=== PATIENT | male | born 1950 ===

== ENCOUNTER 2023-08-04 14:54 | Observation (INO) | payer MEDICARE, SELFPAY ==
--- NOTE | ~2023-08-04 | CT_ITS ---
EXAMINATION: CTA BRAIN/CAROTID DATE: 08/04/2023 19:59 INDICATION: Resting nystagmus. Disequilibrium. TECHNIQUE: Computed tomographic angiography (CTA) of the head and neck was performed with 100 mL Omni paque-350 intravenous contrast. Multiplanar reconstructions and maximum intensity projection 3D-recon structions of the carotid arteries and of the intracranial arteries were created by the technologist on a separate workstation. Precontrast CT of the head was also obtained. Automated exposure control and iterative reconstruction technique were employed.The dose-length product was 1829.12 mGy-cm. COMPARISON: None. FINDINGS: Carotid arteries: Thoracic aorta is normal in caliber with plaque visible atherosclerotic plaque and no dissection. The re is small amount of atherosclerotic plaque with 20% stenosis of the right carotid bulb relative to normal distal artery lumen diameter (NASCET criteria). There is small amount of atherosclerotic plaqu e with 0% stenosis of the left carotid bulb relative to normal distal artery lumen diameter. The left vertebral artery is mildly dominant. Visualized portions of the upper lungs are clear. Superior medi astinum and cervical soft tissues are unremarkable. Moderate cervical spondylosis. Head: No acute intracranial hemorrhage, acute infarction or abnormal extra axial fluid collection. There is mild scattered white matter hypoattenuation consistent with chronic small vessel ischemic disease. V entricles are normal and symmetric. No mass/mass effect. No abnormally enhancing brain lesions identi fied on the post contrast imaging. The orbits and mastoid air cells are normal. Mild mucosal thickeni ng at the right maxillary sinus. Intracranial arteries Small amount of nonhemodynamically significant atherosclerotic plaque at the bilateral carotid siphon s. There is no hemodynamically significant stenosis in the vertebral, basilar and internal carotid ar teries. Left vertebral artery is mildly dominant. There are no aneurysms identified. Both A1 and P1 segments are patent. Cerebral arterial arborization appears symmetric. IMPRESSION: 1. 20% stenosis of the right carotid bulb relative to normal distal artery lumen diameter (NASCET cri teria). 2. 0% stenosis of the left carotid bulb relative to normal distal artery lumen diameter. 3. Mild scattered white matter hypoattenuation consistent with chronic small vessel ischemic disease. No acute intracranial process or abnormally enhancing brain lesions. 4. Unremarkable cerebral CT angiogram with no hemodynamically significant stenosis, thrombosis or ane urysm. Reviewed, dictated and finalized at location A. CTOR OF PROFESSIONAL SERVICES IMPRESSION: 1. 20% stenosis of the right carotid bulb relative to normal distal artery lume n diameter (NASCET criteria). 2. 0% stenosis of the left carotid bulb relative to normal distal artery lumen diameter. 3. Mild scattered white matter hypoattenuation consistent with chronic small ve ssel ischemic disease. No acute intracranial process or abnormally enhancing br ain lesions. 4. Unremarkable cerebral CT angiogram with no hemodynamically significant steno sis, thrombosis or aneurysm.
--- NOTE | ~2023-08-04 | XR_ITS ---
EXAMINATION: XR chest 1V portable DATE: 08/04/2023 19:43 INDICATION: Chest pain TECHNIQUE: frontal view of the chest was obtained. COMPARISON: Chest radiograph dated 09/20/2003 FINDINGS: The lungs are clear with no focal airspace opacities, pulmonary edema, pleural effusion or pneumothor ax. The cardiomediastinal silhouette is normal. Coronary artery stenting. A few tiny surgical clips a t the left neck. IMPRESSION: 1. No acute cardiopulmonary disease. Reviewed, dictated and finalized at location A. BILLING SPECIALIST
--- NOTE | ~2023-08-04 | MR_ITS ---
EXAMINATION: MR brain/brain stem wo/w con DATE: 08/05/2023 08:05 INDICATION: Disequilibrium. TECHNIQUE: Magnetic resonance imaging (MRI) of the brain and brainstem was performed without and with 20 mL MultiHance intravenous contrast. COMPARISON: Head CT 08/04/2023 FINDINGS: There are scattered areas of nonspecific increased T2-weighted signal intensity in the cere bral white matter. There is no intracranial hemorrhage, acute infarction, or abnormal intracranial ma ss lesion. The ventricles are normal in size. The orbits are normal. The paranasal sinuses are clear. There are trace mastoid effusions. There are effusions of the petrous apices bilaterally. IMPRESSION: 1. Mild nonspecific cerebral white matter disease, which likely represents chronic small vessel ische davina disease. Reviewed, dictated and finalized at location A. HOLDER IMPRESSION: 1. Mild nonspecific cerebral white matter disease, which likely represents chronic care nurse nichol small vessel ischemic disease.
[2023-08-04 15:01] VITALS: BP 178/76; PULSE 63; RESP 20; TEMP 35.5; O2SAT 98
--- NOTE | 2023-08-04 18:59 | ECG_ITS ---
Measurements Intervals [place] Rate: 65 P: 20 ID: [id number] QRS: -57 QRSD: 121 T: 30 QT: 364 QTc: 380 Interpretive Statements SINUS RHYTHM LEFT ANTERIOR FASCICULAR BLOCK [QRS AXIS <= -45, QR IN I, RS IN II] NONSPECIFIC ST AND T-WAVE ABNORMALITY ABNORMAL ECG NO PREVIOUS ECG AVAILABLE FOR COMPARISON Electronically Signed On 08-05-2023 11:43:39 BODY ART TECHNICIAN by Joe Ken M.D.
[2023-08-04] MEDS: ONDANSETRON INJ 4 MG/2 ML VIAL IV PUSH (19:24)
[2023-08-04] MEDS: LORazepam INJ (*CRX) 2 MG/ML VIAL 0.5 MG IV PUSH (19:24)
[2023-08-04 19:27] LABS: Basophils Percent Auto 0.2 % (0.2-1.2); Eosinophils Percent Auto 0.2 % (0-4.4); Hematocrit 46.2 % (42.0-52.0); Hemoglobin 14.7 g/dL (14.0-18.0); Immature Granulocyte Absolute 0.06 K/mm3 (0.00-0.031); Immature Granulocyte Percent A 0.5 % (0-0.5); Lymphocytes Absolute Auto 1.19 K/mm3 (0.9-3.2); Lymphocytes Percent Auto 9.2 % (18.3-44.2); Mean Corpuscular HGB Conc 31.8 g/dl (32-36); Mean Corpuscular Hemoglobin 28.7 pg (26-34); Mean Corpuscular Volume 90.1 fl (80-100); Mean Platelet Volume 10.7 fl (7.4-10.4); Monocytes Absolute Auto 0.4 K/mm3 (0.1-0.6); Monocytes Percent Auto 3.3 % (2.6-8.5); Neutrophils Absolute Auto 11.2 K/mm3 (1.3-6.7); Neutrophils Percent Auto 86.6 % (45.5-73.1); Platelet Count Result 184 k/mm3 (150-375); Red Blood Count 5.13 M/mm3 (4.6-6.20); Red Cell Distribution Width 13.7 % (11.5-14.5); White Blood Count 12.9 K/mm3 (4.5-10.0)
[2023-08-04 19:36] LABS: INR 0.9; Prothrombin Time 12.4 Seconds (11.1-14.7)
[2023-08-04 19:37] LABS: Alanine Aminotransferase 34 U/L (6-50); Albumin Level 4.3 g/dL (3.5-5.1); Alkaline Phosphatase 120 U/L (38-126); Anion Gap 7 mmol/L (8-16); Aspartate Amino Transferase 31 U/L (17-59); Bilirubin,Total 0.5 mg/dL (0.2-1.3); Blood Urea Nitrogen 25 mg/dL (9-20); Calcium 9.9 mg/dL (8.4-10.2); Carbon Dioxide 29 mmol/L (22-30); Chloride 104 mmol/L (98-107); Estimated Glomerular Filt Rate 60; Glucose 122 mg/dL (65-110); Lipase 33 U/L (23-300); Magnesium 2.1 mg/dL (1.6-2.3); Potassium 4.4 mmol/L (3.4-5.0); Sodium 140 mmol/L (137-145)
[2023-08-04 19:38] LABS: Partial Thromboplastin Time 30.3 SECONDS (22.3-36.8)
[2023-08-04 19:49] LABS: Troponin I < 0.012 ng/mL (0.000-0.034)
[2023-08-04 20:05] LABS: Influenza A QL RT-PCR Negative (Negative); Influenza B QL RT-PCR Negative (Negative); RSV RNA, RT-PCR Negative (Negative); SARS-CoV-2 RNA PCR Negative (Negative)
--- NOTE | 2023-08-04 20:29 | ED.GENADULT ---
HPI - General Adult General Chief complaint: Chest Pain Stated complaint: cp, n/v, dyspnea Time Seen by Provider: 08/04/23 18:56 History of Present Illness HPI narrative: This is a 73-year-old male presenting to the ED with dizziness. Patient was laying on sofa to he tried to get up he was unable to get his balance. He had some episodes of vomiting. He feels that he cannot focus his vision. The disequilibrium improves when he closes his eyes but returns when he opens them. It is worsened with movement. He denies slurred speech, trouble swallowing or loss of coordination. He denies numbness tingling weakness to any extremity. No fever chills chest pain shortness of breath or abdominal pain. No trauma. Patient states he had similar symptoms 3 weeks ago and went to [place] but was never seen in the symptoms resolved. Related Data Allergies Allergy/AdvReac Type Severity Reaction Status Date / Time tetracycline Allergy Severe Unverified 01/31/15 09:29 [facility] Past Medical History Medical History Diabetes HTN (hypertension) Exam Narrative: APPEARANCE: No apparent distress. Head: atraumatic. EYES: Rightward lateral nystagmus at rest NOSE: Atraumatic NECK: Trachea midline RESPIRATORY: No increased rate of breathing CARDIOVASCULAR: RRR, ABDOMINAL: Non-distended MUSCULOSKELETAl: No obvious deformities NEURO: Alert. Cranial nerves 2-12 grossly intact. Sensation light touch, motor function cerebellar function intact for 4 extremities. Gait exam deferred SKIN:: Warm, dry. Normal color PSYCHIATRIC: Normal affect NIH is 0-NIH scale is insensitive for posterior stroke Course Vital Signs Vital signs: Vital Signs Temperature 95.9 F L 08/04/23 15:01 Pulse Rate 63 08/04/23 15:01 Respiratory Rate 20 08/04/23 15:01 Blood Pressure 178/76 H 08/04/23 15:01 Pulse Oximetry 98 08/04/23 15:01 Temperature 95.9 F L 08/04/23 15:01 Pulse Rate 63 08/04/23 15:01 Respiratory Rate 20 08/04/23 15:01 Blood Pressure 178/76 H 08/04/23 15:01 Pulse Oximetry 98 08/04/23 15:01 Medical Decision Making [facility] Narrative Medical decision making narrative: -Course: 73-year-old male with last known normal 2:00 p.m. presenting with disequilibrium/lateral nystagmus at rest no other neurologic deficits. Patient is elderly, with risk factors for vascular disease and elevated blood pressure. This is concerning for central cause of disequilibrium. NIH is 0. NIH insensitive for posterior stroke. patient is outside of any treatment window. CTA showed small-vessel ischemic disease but no large vessel occlusions or infarct. Patient was given meclizine with no improvement. Patient will be admitted the hospital for further evaluation. 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 Metabolic panel unremarkable. Initial troponin undetectable. Viral swabs negative. CT head and CT of the head showed no intracranial hemorrhage. 20% stenosis of the carotid bulb. Small vessel ischemic disease. Chest x-ray unremarkable Independent EKG interpretation: Rhythm [sinus], Rate 65, [place] -[normal], VT -[normal], QRS [narrow], QTC [normal], T waves -[negative for concerning inversions], ST Segments - [Negative for concerning elevations] Final interpretations: NSR with nonspecific ST changes -Discussion of Management/Consultants: Rod-Hospitalist -Interventions: 325 aspirin, meclizine -Shared decision making / Disposition: Admitted Vital Signs Vital Signs: Vital Signs Temperature 95.9 F L 08/04/23 15:01 Pulse Rate 63 08/04/23 15:01 Respiratory Rate 20 08/04/23 15:01 Blood Pressure 178/76 H 08/04/23 15:01 Pu
[2023-08-04] MEDS: ASPIRIN 81 MG CHEWABLE TABLET 324 MG PO (21:09)
[2023-08-04] MEDS: MECLIZINE HCL 25 MG TABLET PO (21:34)
--- NOTE | 2023-08-04 21:48 | PM.IMHP ---
H&P: HPI History of Present Illness Date/Time: 08/04/23 21:48 Chief Complaint: Dizziness Narrative: This is a 73-year-old male presenting to the ED with dizziness.? He stated he was lying in sofa at about 2:00 p.m. and try to get up, felt dizzy which he described as intermittent spinning and he is eyes moving fast, and also unstable balance,? He had some episodes of vomiting at the same time,.? He feels that he cannot focus his vision.? The disequilibrium improves when he closes his eyes and lies down without moving but returns when he opens them and moves.? He denies slurred speech, trouble swallowing or loss of coordination.? He denies numbness tingling weakness to any extremity.? No fever chills chest pain shortness of breath or abdominal pain.? No trauma. He reported that he had similar symptoms 2 weeks ago and he was at [facility] but symptom resolved and he left without being seen. He was evaluated in the ER today, CT scan of the head was negative for any acute finding, CTA head and neck showed variable levels of numbering in great vessels. He was provided with aspirin, Zofran and Antivert. He stated that symptoms has improved a little. He feels much better when he lays down and closes his eye. I was called to admit this patient for further evaluation with an MRI Review of Systems Review of Systems: All systems reviewed & are unremarkable except as noted in HPI and below PMFSH Past Medical History Medical History Diabetes HTN (hypertension) Family History Family History (Updated 08/04/23 @ 23:39 by Mayela Soto RN) Father Coronary artery disease Hx of heart artery stent Heart failure Social History Social History Smoking status: Former smoker Alcohol intake: never Substance use: never Do You Feel Safe in your Home?: Yes Lack of Transportation: No Lack of Food: Never True Current Housing: I Have Housing Concerned About Future Housing: No Difficulty Paying Gas/Electric Bills: No Difficulty Paying for Meds: No Currently Unemployed: No Education: Don't Know Difficulty w/ Childcare or Family Care: No Spiritual care concerns: No Meds Home Medications and Allergies Home Medications Medication Instructions Recorded Confirmed Type aspirin 81 mg tablet 81 mg PO DAILY 08/04/23 08/04/23 History atorvastatin 20 mg tablet 20 mg PO QAM 08/04/23 08/04/23 History carvedilol 6.25 mg tablet 6.25 mg PO BID 08/04/23 08/04/23 History clopidogrel 75 mg tablet 75 mg PO QAM 08/04/23 08/04/23 History digoxin 125 mcg (0.125 mg) tablet 125 mcg PO DAILY 08/04/23 08/04/23 History ergocalciferol (vitamin D2) 1,000 2,400 unit PO DAILY 08/04/23 08/04/23 History unit capsule finasteride 5 mg tablet 5 mg PO DAILY 08/04/23 08/04/23 History furosemide 20 mg tablet 20 mg PO DAILY 08/04/23 08/04/23 History ibrutinib 140 mg capsule 140 mg PO DAILY 08/04/23 08/04/23 History (Imbruvica) isosorbide mononitrate 30 mg 15 mg PO DAILY 08/04/23 08/04/23 History tablet,extended release 24 hr lisinopril 5 mg tablet 5 mg PO DAILY 08/04/23 08/04/23 History loperamide 2 mg tablet 2 mg PO Q4H PRN Diarrhea 08/04/23 08/04/23 History (Anti-Diarrheal (loperamide)) lorazepam 1 mg tablet 1 mg PO DAILY PRN Anxiety 08/04/23 08/04/23 History nitroglycerin 0.4 mg sublingual 0.4 mg sublingual Q5-15M PRN Chest 08/04/23 08/04/23 History tablet Pain pantoprazole 40 mg tablet,delayed 40 mg PO HS 08/04/23 08/04/23 History release tamsulosin 0.4 mg capsule 0.4 mg PO DAILY 08/04/23 08/04/23 History Allergies Allergy/AdvReac Type Severity Reaction Status Date / Time tetracycline Allergy Severe Anaphylaxis Verified 08/04/23 23:56 Vital Signs Vital Signs - 24 hr 08/04/23 15:01 Temperature 95.9 F L Pulse Rate 63 Respiratory Rate 20 Blood Pressure 178/76 H Pulse Oximetry 98 Exam Narrative: APPEARANCE: No apparent distress. Head: atrau
[2023-08-04 21:58] VITALS: BP 170/77; PULSE 69; PULSE 73; RESP 12; O2SAT 96
[2023-08-04 21:58] LABS: Appearance Urine Clear (Clear); Bacteria Urine None Seen /hpf; Bilirubin Urine Negative (Negative); Blood Urine 2+ (Negative); Color Urine Yellow (Yellow); Glucose Urine UA Negative (Negative); Ketones Urine Negative (Negative); Leukocyte Esterase Ur Negative LEU/UL (Negative); Nitrate Urine Negative (Negative); Non Pathogenic Casts 0-2; Protein Urine Negative (Negative); Squamous Epithelial Cell Urine None seen /hpf (Few); Urobilinogen Urine 0.2 mg/dL (<2.0); WBC Urine 0-5 /hpf; pH Urine 5.5 (5.0-9.0)
[2023-08-04 21:59] LABS: Specific Grav Ur 1.045 (1.001-1.035)
[2023-08-04 22:00] LABS: Add Urine Microscopic? YES
--- NOTE | 2023-08-04 22:17 | ECG_ITS ---
Measurements Intervals [place] Rate: 71 P: 52 WI: 195 QRS: -59 QRSD: 124 T: 30 QT: 371 QTc: 406 Interpretive Statements SINUS RHYTHM LEFT ANTERIOR FASCICULAR BLOCK [QRS AXIS <= -45, QR IN I, RS IN II] ABNORMAL ECG COMPARED TO ECG 08/04/2023 19:26:24 NO SIGNIFICANT CHANGES Electronically Signed On 08-07-2023 14:58:40 PLAN COORDINATOR by Joe Ken M.D.
[2023-08-04 22:42] LABS: Troponin I < 0.012 ng/mL (0.000-0.034)
--- NOTE | 2023-08-04 23:36 | ADMGEN ---
This patient, Solo Martin, was admitted to [facility] Surg Room 323-02. Patient/family oriented to hospital policies and general routines including ID bracelet, bed and alarms, visiting hours, pain management, procedures, bathroom and other care routines, personal items, smoking policy, room service/diet, and visiting hours. Information on how to activate the Rapid Response Team has been discussed. Patient/Family are encouraged to report perceived risks to care and to ask questions if they do not understand what they are told or what they should do.
[2023-08-04 23:38] VITALS: BP 166/76; PULSE 68; RESP 13; TEMP 36.1; O2SAT 99
[2023-08-04 23:39] VITALS: BMI 30.7
[2023-08-05] VITALS: PULSE 75
[2023-08-05 04:00] VITALS: BP 150/65; PULSE 70; PULSE 74; RESP 12; TEMP 36.1; O2SAT 97
[2023-08-05 05:44] VITALS: BP 150/65; PULSE 74; RESP 12; TEMP 36.1; O2SAT 97
[2023-08-05 06:33] LABS: Basophils Percent Auto 0.3 % (0.2-1.2); Eosinophils Absolute Auto 0.1 K/mm3 (0-0.3); Eosinophils Percent Auto 0.5 % (0-4.4); Hematocrit 42.2 % (42.0-52.0); Hemoglobin 13.7 g/dL (14.0-18.0); Immature Granulocyte Absolute 0.04 K/mm3 (0.00-0.031); Immature Granulocyte Percent A 0.4 % (0-0.5); Lymphocytes Absolute Auto 1.37 K/mm3 (0.9-3.2); Lymphocytes Percent Auto 13.5 % (18.3-44.2); Mean Corpuscular HGB Conc 32.5 g/dl (32-36); Mean Corpuscular Hemoglobin 28.8 pg (26-34); Mean Corpuscular Volume 88.8 fl (80-100); Mean Platelet Volume 10.7 fl (7.4-10.4); Monocytes Absolute Auto 0.6 K/mm3 (0.1-0.6); Monocytes Percent Auto 5.9 % (2.6-8.5); Neutrophils Absolute Auto 8.1 K/mm3 (1.3-6.7); Neutrophils Percent Auto 79.4 % (45.5-73.1); Platelet Count Result 186 k/mm3 (150-375); Red Blood Count 4.75 M/mm3 (4.6-6.20); Red Cell Distribution Width 13.8 % (11.5-14.5); White Blood Count 10.2 K/mm3 (4.5-10.0)
[2023-08-05 06:41] LABS: Anion Gap 4 mmol/L (8-16); Blood Urea Nitrogen 23 mg/dL (9-20); Calcium 9.3 mg/dL (8.4-10.2); Carbon Dioxide 26 mmol/L (22-30); Chloride 107 mmol/L (98-107); Estimated CRCL calculation 65 ml/min; Estimated Glomerular Filt Rate > 60; Glucose 107 mg/dL (65-110); Sodium 137 mmol/L (137-145)
[2023-08-05] MEDS: LORazepam INJ (*CRX) 2 MG/ML VIAL 0.5 MG IV PUSH (07:24)
[2023-08-05 08:00] VITALS: BP 146/96; PULSE 81; RESP 18; TEMP 36; O2SAT 98
[2023-08-05] MEDS: TAMSULOSIN HCL 0.4 MG CAPSULE PO (09:02)
[2023-08-05] MEDS: FUROSEMIDE 20 MG TABLET PO (09:02)
[2023-08-05] MEDS: ATORVASTATIN 20 MG TABLET PO (09:02)
[2023-08-05] MEDS: lisinopriL 5 MG TABLET PO (09:02)
[2023-08-05] MEDS: FINASTERIDE 5 MG TABLET PO (09:02)
[2023-08-05 09:03] VITALS: PULSE 80
[2023-08-05] MEDS: CLOPIDOGREL BISULFATE 75 MG TABLET PO (09:03)
[2023-08-05] MEDS: carvediloL 6.25 MG TABLET PO (09:03)
[2023-08-05] MEDS: DIGOXIN TAB 125 MCG TABLET PO (09:03)
[2023-08-05] MEDS: ASPIRIN 81 MG ENTERIC TABLET PO (09:04)
[2023-08-05] MEDS: ISOSORBIDE MONONITRATE 15 MG TAB.ER.24H PO (11:52)
--- NOTE | 2023-08-05 11:52 | WPDNEURCNPN ---
Assessment and Plan Assessment and plan (1) Unsteady gait: Code(s): R26.81 - Unsteadiness on feet Status: Acute (2) Diabetes: Code(s): E11.9 - Type 2 diabetes mellitus without complications Status: Acute (3) HTN (hypertension): Code(s): I10 - Essential (primary) hypertension Status: Acute Plan Dizziness with underlying diabetes mellitus could very well be secondary to diabetic autonomic neuropathy but he also had the additional complaint of vomiting and inability to focus with information that disequilibrium improved when he closed his eyes raising the possibility of vestibular dysfunction though at present his exam is normal possibility of the stroke has been ruled out so as the posterior circulation disease he can obtain the surface echocardiogram and then he can be released on the same medications that is aspirin and clopidogrel only for the next 6 weeks. Consult date: 08/05/23 HPI: Solo Martin is a 73 year old male Admitted to the hospital through the emergency room for the complaints of dizziness. He was laying on sofa and when he tried to get up he was unable to get his balance. Also had an episode of vomiting in addition to difficulties in focusing his vision he also reported that disequilibrium improve when he closed his eyes but returned when he opened his eyes and also it is worsened with movements. He had no associated dysarthria difficulties in swallowing difficulties incoordination he gave no history of numbness or tingling or weakness of 1 or other upper or lower extremity. He is allergic to tetracycline. Has ongoing history of diabetes mellitus and hypertension. Initial exam was nonfocal. Vital signs were normal except the blood pressure 178/76. Routine lab studies including CBC BMP were all normal and he was also negative for the screening for influenza a influenza B RSV and SARs COVID. He has CTA of the brain and neck which revealed 20% stenosis of right carotid bulb but otherwise normal. Since admission MRI of the brain has been done which is mild and nonspecific white matter changes but no territorial infarct or space-occupying lesion. His chest x-ray is negative. He is a former smoker, never alcohol intake, and has been taking multiple medications which include aspirin 81mg daily atorvastatin 20mg daily carvedilol 6.25mg b.i.d. clopidogrel 75mg daily digoxin 125mcg daily in addition to furosemide, lisinopril tamsulosin and p.r.n. lorazepam Review of Systems Review of Systems: All systems reviewed & are unremarkable except as noted in HPI and below PMFSH Past Medical History Medical History Diabetes HTN (hypertension) Family History Family History (Updated 08/04/23 @ 23:39 by Mayela Soto, RADHA) Father Coronary artery disease Hx of heart artery stent Heart failure Social History Social History Smoking status: Former smoker Alcohol intake: never Substance use: never Do You Feel Safe in your Home?: Yes Lack of Transportation: No Lack of Food: Never True Current Housing: I Have Housing Concerned About Future Housing: No Difficulty Paying Gas/Electric Bills: No Difficulty Paying for Meds: No Currently Unemployed: No Education: Don't Know Difficulty w/ Childcare or Family Care: No Spiritual care concerns: No Meds Home Medications and Allergies Home Medications Medication Instructions Recorded Confirmed Type aspirin 81 mg tablet 81 mg PO DAILY 08/04/23 08/04/23 History atorvastatin 20 mg tablet 20 mg PO QAM 08/04/23 08/04/23 History carvedilol 6.25 mg tablet 6.25 mg PO BID 08/04/23 08/04/23 History clopidogrel 75 mg tablet 75 mg PO QAM 08/04/23 08/04/23 History digoxin 125 mcg (0.125 mg) tablet 125 mcg PO DAILY 08/04/23 08/04/23 History ergocalciferol (vitamin D2) 1,000 2,400 unit PO DAILY 08/04/23 08/04/23 History unit capsule finasteride 5 mg tablet 5 mg PO SANJEEV
[2023-08-05 14:00] VITALS: BP 146/64; PULSE 75; RESP 16; TEMP 36.2; O2SAT 96
--- NOTE | 2023-08-05 15:55 | PHAR ---
PHARMACY VERIFIED HOME MED: Ibrutinib [Imbruvica] 140 mg capsule Take one capsule by mouth once daily with a full glass of water Nursing: handle with caution - wear gloves
--- NOTE | 2023-08-05 16:32 | PM.DS ---
DS: Admitting Diagnosis Discharge Date 08/05/23 Admitting Diagnosis Unstable gait DS: Discharge Diagnosis Discharge Diagnosis (1) Dizziness: Code(s): R42 - Dizziness and giddiness Status: Acute (2) Unsteady gait: Code(s): R26.81 - Unsteadiness on feet Status: Acute Plan Admit for further evaluation, consult Neurology, MRI of the brain in the morning DS: Summary Hospital Course Reason for hospitalization: Unstable gait Dizziness Hospital Course: Chief Complaint: Dizziness Narrative: This is a 73-year-old male presenting to the ED with dizziness.? He stated he was lying in sofa at about 2:00 p.m. and try to get up, felt dizzy which he described as intermittent spinning and he is eyes moving fast, and also unstable balance,? He had some episodes of vomiting at the same time,.? He feels that he cannot focus his vision.? The disequilibrium improves when he closes his eyes and lies down without moving but returns when he opens them and moves.? He denies slurred speech, trouble swallowing or loss of coordination.? He denies numbness tingling weakness to any extremity.? No fever chills chest pain shortness of breath or abdominal pain.? No trauma.? He reported that he had similar symptoms 2 weeks ago and he was at [facility] but symptom resolved and he left without being seen.? He was evaluated in the ER today, CT scan of the head was negative for any acute finding, CTA head and neck showed variable levels of numbering in great vessels.? He was provided with aspirin, Zofran and Antivert.? He stated that symptoms has improved a little.? He feels much better when he lays down and closes his eye.? I was called to admit this patient for further evaluation with an MRI Significant findings: 1. Mild nonspecific cerebral white matter disease, which likely represents chronic small vessel ischemic disease. Procedures performed: None consultants: Neurology: Dizziness with underlying diabetes mellitus could very well be secondary to diabetic autonomic neuropathy but he also had the additional complaint of vomiting and inability to focus with information that disequilibrium improved when he closed his eyes raising the possibility of vestibular dysfunction though at present his exam is normal possibility of the stroke has been ruled out so as the posterior circulation disease he can obtain the surface echocardiogram and then he can be released on the same medications that is aspirin and clopidogrel only for the next 6 weeks. Time Spent with Patient Time attestation: Total time spent providing and/or coordinating discharge services: Time spent: Greater than 30 minutes Exam Narrative: APPEARANCE: No apparent distress. Head: atraumatic. EYES:? Pupils are equal round reactive to light, EOMI, no nystagmus NOSE: Atraumatic NECK: Trachea midline RESPIRATORY: No increased rate of breathing CARDIOVASCULAR: RRR, ABDOMINAL: Non-distended MUSCULOSKELETAl: No obvious deformities NEURO: Alert.? Cranial nerves 2-12 grossly intact.? Sensation light touch, motor function cerebellar function intact for 4 extremities.? Gait Stable and improved SKIN:: Warm, dry. Normal color PSYCHIATRIC: Normal affect NIH is 0-however patient does have dizziness with head ? DS: Data Data Completed and Pending Labs on day of discharge: Labs from last 24 hours 08/05/23 08/04/23 08/04/23 06:05 22:15 21:40 WBC 10.2 H RBC 4.75 Hgb 13.7 L Hct 42.2 MCV 88.8 MCH 28.8 MCHC 32.5 RDW 13.8 Plt Count 186 MPV 10.7 H Immature Gran % (Auto) 0.4 Neut % (Auto) 79.4 H Lymph % (Auto) 13.5 L Nuckolls % (Auto) 5.9 Eos % (Auto) 0.5 Baso % (Auto) 0.3 Lymph # (Auto) 1.37 [place]olls # (Auto) 0.6 Eos # (Auto) 0.1 Baso # (Auto) 0.0 Abs Immat Gran (auto) 0.04 H Absolute Neuts (auto) 8.1 H Absolute Nucleated RBC 0.0 Nucleated RBC % 0.0 PT INR APTT Sodium 137 Potassium 4.0 Chlorid
--- NOTE | 2023-08-05 22:17 | ECG_ITS ---
Measurements Intervals [place] Rate: 70 P: -5 [place]: 189 QRS: -50 QRSD: 125 T: 51 QT: 381 QTc: 413 Interpretive Statements SINUS RHYTHM LEFT ANTERIOR FASCICULAR BLOCK [QRS AXIS <= -45, QR IN I, RS IN II] NONSPECIFIC ST & T-WAVE ABNORMALITY COMPARED TO ECG 08/04/2023 22:17:51 NO SIGNIFICANT CHANGES Electronically Signed On 08-05-2023 14:41:30 NYLON MENDER by Edouard Moy M.D.
== END 2023-08-05 17:52 | disposition home or self-care (01) ==
LOC: ANHED 21:47 → ANH3MEDSUR 23:04
PROVIDERS: Admitting Provider Student in an Organized Health Care Education/Training Program; Emergency Provider Emergency Medicine; PCP Internal Medicine; Visit Provider Internal Medicine
DX: R42 Dizziness and giddiness (principal); R26.81 Unsteadiness on feet; I10 Essential (primary) hypertension; E11.9 Type 2 diabetes mellitus without complications; Z79.82 Long term (current) use of aspirin; Z79.02 Long term (current) use of antithrombotics/antiplatelets
CPT/HCPCS: 36415; 70496; 70498; 70553; 71045; 80048; 80053; 81001; 83690; 83735; 84484; 85025; 85610; 85730; 87637; 93005; 96374; 96375; 96376; 97161; 97165; 99285; A9270; A9577; G0378; J2060; J2405; Q9967

== ENCOUNTER 2024-08-20 11:54 | Emergency (ER) | payer MEDICARE, SELFPAY ==
[2024-08-20 11:57] VITALS: BP 163/85; PULSE 69; RESP 16; TEMP 36.8; O2SAT 96
--- NOTE | 2024-08-20 12:01 | PC.NURSE ---
LWBS:pt reports he wants to go because his BP is better and not symptomatic and has appointment with vascular on Thursday. Reports he will return if s/s change
== END 2024-08-20 13:34 | disposition left against medical advice (07) ==
LOC: ANHED 12:22
PROVIDERS: PCP Internal Medicine
DX: I10 Essential (primary) hypertension (principal)
CPT/HCPCS: 99199

== ENCOUNTER 2025-05-31 09:13 | Outpatient (CLI) | payer MEDICARE, SELFPAY ==
--- NOTE | ~2025-05-31 | US_ITS ---
EXAMINATION: US renal BI DATE: 05/31/2025 09:32 INDICATION: Stage III chronic kidney disease TECHNIQUE: Multiple ultrasound grayscale images of the kidneys were obtained. COMPARISON: CT dated FINDINGS: The right kidney measures 10.3 x 5.2 x 4.8 cm. The left kidney measures 10.6 x 6.1 x 5.6 cm. The kidneys demonstrate normal echogenicity. There is no hydronephrosis in either kidney. No stones identified. The bladder is normal. IMPRESSION: 1. Normal kidneys without hydronephrosis. Reviewed, dictated and finalized at location A. PUMPING STATION HELPER
== END 2025-05-31 09:14 | disposition home or self-care (01) ==
LOC: MICIMG 09:15
PROVIDERS: PCP Internal Medicine; Visit Provider Specialist
DX: N18.30 Chronic kidney disease, stage 3 unspecified (principal)
CPT/HCPCS: 76770

== ENCOUNTER 2025-06-21 18:36 | Emergency (ER) | payer MEDICARE, SELFPAY ==
--- OUTSIDE RECORDS SUMMARY | 2025-04-12 09:45 | XMS_ITS ---
Author Organization [facility] Address [address] [place] [address] Care Team Providers Care Last Picker Name Role Phone Gregg Farzad Unavailable [phone] Encounters Encounter Location Date Provider Diagnosis [place] [facility] [address] [facility] [address] [place] [address] 04/12/2025 Farzad Escobedo Plan Of Treatment Next Appt Details Provider Name:Farzad Escobedo , 09/01/2025 01:15:00 PM, [address], [place], [address], Progress Notes * Chary MARTINOB:1950 ( 75 yo M)Acc No.[id number]:04/12/2025 Progress Notes Patient: Solo JAMES Provider: Naomi SANDERS MD, Rocky.Flip.C.P, F.A.S.N. :1950 A ge:75 Y S ex:Male Date:04/12/2025 Address:[address] [place] [address] Subjective: * Chief Complaints: * * Medical History: Objective: * Vitals: Assessment: Plan: * Treatment: * Billing Information: * Visit Code: * Procedure Codes: * Electronic signature of Kelly Escobedo MD on 06/21/2025 at 07:50 PM INFANT AND TODDLER TEACHER Sign off status: Pending * Provider: Naomi SANDERS MD, Rocky.Flip.C.P, F.A.S.N. Date: Generated for Printing/Faxing/eTransmitting on: 07:50 PM INFANT AND TODDLER TEACHER
--- OUTSIDE RECORDS SUMMARY | 2025-04-26 12:30 | XMS_ITS ---
Author Organization [facility] Office Address [address] [place] [address] Care Team Providers Care Psychiatric Orderly Name Role Phone Gregg Farzad Unavailable [phone] Encounters Encounter Location Date Provider Diagnosis [place] [facility] [address] [facility] [address] [place] [address] 04/26/2025 Farzad Escobedo Plan Of Treatment Next Appt Details Provider Name:Farzad Escobedo , 09/01/2025 01:15:00 PM, [address], [place], [address], Progress Notes * Chary MARTINOB:1950 ( 75 yo M)Acc No.[id number]:04/26/2025 Progress Notes Patient: Solo JAMES Provider: Naomi SANDERS MD, Rocky.Flip.C.P, F.A.S.N. :1950 A ge:75 Y S ex:Male Date:04/26/2025 Address:[address] [place] [address] Subjective: * Chief Complaints: * * Medical History: Objective: * Vitals: Assessment: Plan: * Treatment: * Billing Information: * Visit Code: * Procedure Codes: * Electronic signature of Kelly Escobedo MD on 06/21/2025 at 07:50 PM CONSTRUCTION FRAMER Sign off status: Pending * Provider: Naomi SANDERS MD, Rocky.Flip.C.P, F.A.S.N. Date: 06/26/2024 Generated for Printing/Faxing/eTransmitting on: 07:50 PM CONSTRUCTION FRAMER
--- OUTSIDE RECORDS SUMMARY | 2025-06-09 07:30 | XMS_ITS ---
Author Organization [facility] Address [address] [facility] [address] [facility] [address] [place] [address] Care Team Providers Care Offbearer Sewer Pipe Name Role Phone EscobedoZacharyFarzad Unavailable [phone] Problems Problem Type SNOMED Code ICD Code Onset Dates Problem Status W/U Status Risk Notes Problem Chronic kidney disease stage 3A (disorder) (243005290) Chronic kidney disease, stage 3a (N18.31) Active confirmed Problem Coronary artery disease (09362801) CAD (coronary artery disease) (I25.10) Active confirmed Encounters Encounter Location Date Provider Diagnosis [place] [facility] [address] [facility] [address] [place] [address] 06/09/2025 Farzad Escobedo Chronic kidney disease, stage 3a N18.31 ; Benign prostatic hyperplasia without lower urinary tract symptoms N40.0 ; Other fatigue R53.83 ; Gastro-esophageal reflux disease without esophagitis K21.9 ; Edema, unspecified R60.9 ; Metabolic disorder, unspecified E88.9 and CAD (coronary artery disease) I25.10 Assessments Encounter Date Diagnosis (ICD Code) Assessment Notes Treatment Notes Treatment Clinical Notes Section Notes 06/09/2025 Chronic kidney disease, stage 3a (ICD-10 - N18.31) 06/09/2025 Benign prostatic hyperplasia without lower urinary tract symptoms (ICD-10 - N40.0) 06/09/2025 Other fatigue (ICD-10 - R53.83) 06/09/2025 Gastro-esophagea l reflux disease without esophagitis (ICD-10 - K21.9) 06/09/2025 Edema, unspecified (ICD-10 - R60.9) 06/09/2025 Metabolic disorder, unspecified (ICD-10 - E88.9) 06/09/2025 CAD (coronary artery disease) (ICD-10 - I25.10) Plan Of Treatment Next Appt Details Provider Name:Farzad Escobedo , 09/01/2025 01:15:00 PM, [address], [place], [address], Progress Notes * Chary MARTINOB:1950 ( 75 yo M)Acc No.[id number]:06/09/2025 Progress Notes Patient: Solo JAMES Provider: Naomi SANDERS MD, F.A.C.P, F.A.S.N. :1950 A ge:75 Y S ex:Male Date:06/09/2025 Address:[address] [place] [address] Subjective: * Chief Complaints: Objective: Assessment: * Assessment: 1. C hronic kidney disease, stage 3a - N18.31 (Primary) 2 . B enign prostatic hyperplasia without lower urinary tract symptoms - N40.0 3 . O ther fatigue - R53.83 4 . G rai-esophageal reflux disease without esophagitis - K21.9 & #160; 5 . E viktoria, unspecified - R60.9 6 . M etabolic disorder, unspecified - E88.9 7 . C AD (coronary artery disease) - I25.10 Plan: * Billing Information: * Visit Code: 84016 Office Visit, Est Pt., Level 4. * Procedure Codes: * Electronic signature of Kelly Escobedo MD on 06/21/2025 at 07:50 PM GARMENT MENDER Sign off status: Pending * Provider: Naomi SANDERS MD, F.A.C.P, F.A.S.N. Date: 08/10/2024 Generated for Printing/Faxing/eTransmitting on: 07:50 PM GARMENT MENDER
--- NOTE | ~2025-06-21 | XR_ITS ---
EXAMINATION: XR chest 2V DATE: 06/21/2025 19:00 INDICATION: Chest pain TECHNIQUE: PA and lateral views of the chest were obtained. COMPARISON: Chest radiograph dated 08/04/2023 FINDINGS: The lungs remain clear with no focal airspace opacities, pulmonary edema, pleural effusion or pneumothorax. The cardiomediastinal silhouette is normal. Cholecystectomy clips at the right upper quadrant. IMPRESSION: 1. No acute cardiopulmonary disease. Reviewed, dictated and finalized at location A. TICS ENGINEER
--- NOTE | ~2025-06-21 | CT_ITS ---
EXAMINATION: CTA chest PE protocol DATE: 06/21/2025 19:43 INDICATION: Chest pain TECHNIQUE: Computed tomography (CT) pulmonary angiogram of the chest was performed with 100 mL Omnipaque-350 intravenous contrast. Additional 3D reconstructions utilizing coronal maximum intensity projection (MIP) were performed. Automated exposure control and iterative reconstruction technique were employed. The dose-length product was 581.94 mGy-cm. COMPARISON: None FINDINGS: No pulmonary embolism. Mild elevation the left hemidiaphragm. Region of groundglass opacity at the posterior segment of the right upper lobe with more focal region of groundglass opacity measuring 1.7 cm the left upper lobe and 7 mm in the superior segment of the right lower lobe which are most likely infectious/inflammatory in etiology. No pulmonary edema, pleural effusion or pneumothorax. Heart size is normal. Atherosclerotic coronary artery calcification likely coronary artery stenting along the left anterior coronary artery. No pericardial effusion. Thoracic aorta is normal in caliber with no di ssection. No pathologically enlarged thoracic lymphadenopathy. Cholecystectomy clips at the gallbladder fossa. Visualized upper abdomen is otherwise unremarkable. Mild thoracic spondylosis with bridging osteophytes at multiple levels consistent with diffuse idiopathic skeletal hyperostosis (DISH). IMPRESSION: 1. No pulmonary embolism. 2. Regions of groundglass opacity in the bilateral upper lobes and superior segment right lower lobe which are likely infectious/inflammatory in etiology. Consider 3 month follow-up low-dose chest CT. Reviewed, dictated and finalized at location A. RVISOR SOLDER MAKING IMPRESSION: 1. No pulmonary embolism. 2. Regions of groundglass opacity in the bilateral upper lobes and superior seg ment right lower lobe which are likely infectious/inflammatory in etiology. Con street light lamp cleaner 3 month follow-up low-dose chest CT.
--- NOTE | 2025-06-21 18:38 | ECG_ITS ---
Test Date: 2025-06-21 19:17:55 Measurements Intervals [place] Rate: 80 P: 48 [place]: 200 QRS: -60 QRSD: 129 T: 55 QT: 320 QTc: 369 Interpretive Statements SINUS RHYTHM BORDERLINE AV CONDUCTION DELAY LEFT ANTERIOR FASCICULAR BLOCK ABNORMAL ECG No previous ECG available for comparison Electronically Signed On 06-21-2025 21:09:31 SPA TECHNICIAN by Harris Rea D.O.
[2025-06-21 18:48] VITALS: BP 112/64; PULSE 89; RESP 20; TEMP 36.6; O2SAT 98
[2025-06-21 19:08] LABS: Hematocrit 44.4 % (42.0-52.0); Hemoglobin 14.4 g/dL (14.0-18.0); Immature Granulocyte Percent A 0.5 % (0-0.5); Lymphocytes Absolute Auto 1.96 K/mm3 (0.9-3.2); Mean Corpuscular HGB Conc 32.4 g/dl (32-36); Mean Corpuscular Hemoglobin 28.9 pg (26-34); Mean Corpuscular Volume 89.2 fl (80-100); Nucleated Red Blood Cells Absolute Auto 0.000 K/mm3 (0.0-0.012); Nucleated Red Blood Cells Perc 0.0 % (0.0-0.2); Platelet Count Result 188 k/mm3 (150-375); Red Blood Count 4.98 M/mm3 (4.6-6.20); White Blood Count 10.4 K/mm3 (4.5-10.0)
--- NOTE | 2025-06-21 19:12 | ECG_ITS ---
Test Date: 2025-06-21 18:42:24 Measurements Intervals [place] Rate: 83 P: 54 NE: 182 QRS: -66 QRSD: 130 T: 70 QT: 324 QTc: 382 Interpretive Statements SINUS RHYTHM LEFT ANTERIOR FASCICULAR BLOCK [QRS AXIS <= -45, QR IN I, RS IN II] Poor R wave progression No previous ECG available for comparison Electronically Signed On 06-22-2025 17:17:36 AUTO BODY REPAIR TECHNICIAN by Brittny Acevedo M.D.
[2025-06-21 19:15] LABS: Alanine Aminotransferase 27 U/L (6-50); Albumin Level 4.1 g/dL (3.5-5.1); Alkaline Phosphatase 98 U/L (38-126); Anion Gap 9 mmol/L (4-12); Aspartate Amino Transferase 27 U/L (17-59); Bilirubin,Total 0.4 mg/dL (0.2-1.3); Blood Urea Nitrogen 48 mg/dL (9-20); Calcium 9.7 mg/dL (8.4-10.2); Carbon Dioxide 20 mmol/L (22-30); Chloride 106 mmol/L (98-107); Estimated CRCL calculation 35 ml/min; Estimated Glomerular Filt Rate 33; Glucose 112 mg/dL (65-110); Lipase 67 U/L (23-300); Potassium 5.0 mmol/L (3.4-5.0); Sodium 135 mmol/L (137-145); Total Protein 7.1 g/dL (6.3-8.2)
--- NOTE | 2025-06-21 19:18 | ED.CHESTPAIN ---
HPI - Chest Pain General Chief Complaint: Chest Pain Stated Complaint: CP Time Seen by Provider: 06/21/25 19:02 History of Present Illness HPI narrative: 75-year-old male with history of coronary artery disease with stent, CHF on digoxin, hypertension, hyperlipidemia, non-Hodgkin's lymphoma and prostate cancer on oral chemotherapy. Patient presents to the emergency department today with chest pressure sensations. He states that been going on for years and has a very poor historian. States his chest pain is in his chest feels like a pressure sensation going down his left arm and left rib cage. Alleviated by belching and sitting up but worse when he lies flat. Denies any shortness of breath or any nausea, vomiting, diaphoresis. 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 Family at bedside also poor historians not able to provide additional collateral formation. Related Data Home Medications ?Medication ?Instructions ?Recorded ?Confirmed ?Last Taken ?Type aspirin 81 mg tablet 81 mg PO DAILY 08/04/23 06/21/25 06/21/25 05:29 History atorvastatin 20 mg tablet 20 mg PO QAM 08/04/23 06/21/25 06/20/25 18:00 History carvedilol 6.25 mg tablet 6.25 mg PO BID 08/04/23 06/21/25 06/21/25 05:30 History clopidogrel 75 mg tablet 75 mg PO QAM 08/04/23 06/21/25 06/21/25 05:30 History digoxin 125 mcg (0.125 mg) tablet 125 mcg PO DAILY 08/04/23 06/21/25 06/21/25 12:00 History ergocalciferol (vitamin D2) 1,000 2,400 unit PO DAILY 08/04/23 08/04/23 Unknown History unit capsule finasteride 5 mg tablet 5 mg PO DAILY 08/04/23 06/21/25 06/21/25 17:00 History furosemide 20 mg tablet 20 mg PO PRN ankle swelling 08/04/23 06/21/25 Unknown History ibrutinib 140 mg capsule 140 mg PO DAILY 08/04/23 06/21/25 06/21/25 12:00 History (Imbruvica) isosorbide mononitrate 30 mg 15 mg PO DAILY 08/04/23 06/21/25 06/21/25 12:00 History tablet,extended release 24 hr lisinopril 5 mg tablet 5 mg PO DAILY 08/04/23 06/21/25 06/21/25 12:00 History loperamide 2 mg tablet 2 mg PO Q4H PRN Diarrhea 08/04/23 08/04/23 Unknown History (Anti-Diarrheal (loperamide)) lorazepam 1 mg tablet 1 mg PO DAILY PRN Anxiety 08/04/23 06/21/25 Unknown History nitroglycerin 0.4 mg sublingual 0.4 mg sublingual Q5-15M PRN Chest 08/04/23 06/21/25 Unknown History tablet Pain pantoprazole 40 mg tablet,delayed 40 mg PO HS 08/04/23 06/21/25 06/21/25 17:00 History release tamsulosin 0.4 mg capsule 0.4 mg PO DAILY 08/04/23 06/21/25 06/21/25 17:00 History calcitriol 0.25 mcg capsule 0.25 mcg PO DAILY 06/21/25 06/21/25 06/21/25 05:30 History Allergies Allergy/AdvReac Type Severity Reaction Status Date / Time tetracycline Allergy Severe Anaphylaxis Verified 06/21/25 18:51 Review of Systems Review of Systems: As reviewed above in HPI All systems reviewed & are unremarkable except as noted in HPI and below PMFSH Past Medical History Medical History Diabetes HTN (hypertension) Family History Family History Father Coronary artery disease Hx of heart artery stent Heart failure Social History Social History Smoking status: Former smoker Alcohol intake: never Substance use: never Lack of Transportation: No Lack of Food: Never True Current Housing: I Have Housing Concerned About Future Housing: No Difficulty Paying Gas/Electric Bills: No Difficulty Paying for Meds: No Currently Unemployed: No Education: Don't Know Difficulty w/ Childcare or Family Care: No Spiritual care concerns: No Exam Narrative: GENERAL: [Well-appearing, well-nourished, and in no acute distress.] HEAD: [Normocephalic, atraumatic.] EYES: [PERRLA and EOMI.] ENT: Nares clear, no rhinorrhea or epistaxis. Mucous membranes moist. NECK: Supple. CHEST: [Clear to auscultation. No respiratory distress.] HEART: Strong symmetric pulses, warm extremities. ABDOMEN: [Soft, nondistended], [nontender], [No rigidity or guarding] EXTREMITIES: Normal range of motion. 1+ pitting edema bilaterally SKIN: Warm, dry, no rash. NEURO: [No focal deficits]. Alert and oriented [x3.] PSYCH: [Normal mood and affect.] Course Vital Signs Vital signs: Vital Signs Temperature 36.6 C 06/21/25 18:48 Pulse Rate 89 06/21/25 18:48 Respiratory Rate 20 06/21/25 18:48 Blood Pressure 112/64 06/21/25 18:48 Pulse Oximetry 98 06/21/25 18:48 Oxygen Delivery Room Air 06/21/25 18:48 Temperature 36.6 C 06/21/25 18:48 Pulse Rate 72 06/21/25 23:52 Respiratory Rate 20 06/21/25 23:52 Blood Pressure 116/51 L 06/21/25 23:52 Pulse Oximetry 96 06/21/25 23:52 Oxygen Delivery Room Air 06/21/25 18:48 MDM MDM Narrative Medical decision making narrative: 75-year-old male with history of coronary artery disease with stent, CHF on digoxin, hypertension, hyperlipidemia, non-Hodgkin's lymphoma and prostate cancer on oral chemotherapy. Patient presents to the emergency department today with chest pressure sensations. He states that been going on for years and has a very poor historian. States his chest pain is in his chest feels like a pressure sensation going down his left arm and left rib cage. Alleviated by belching and sitting up but worse when he lies flat. Denies any shortness of breath or any nausea, vomiting, diaphoresis. 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 Family at bedside also poor historians not able to provide additional collateral formation. Patient's examination is reassuring does not appear particularly ill or unwell. He is normal vital signs with any tachycardia, fever, hypoxemia, and normal blood pressure. Much strong symmetric pulses in clear breath sounds throughout. He does have cardiac risk factors and cardiac history so could potentially be ACS, pneumonia, pneumothorax, pulmonary embolism, vascular issue. He states he feels better when he belches and sits up so could also be GI tract such as esophageal dysmotility. Laboratory studies and EKG were obtained. CT angiography ordered given his history of cancer with active chest pain with EKG that does not appear acutely ischemic for further delineation. Laboratory studies showed no significant leukocytosis or anemia. Normal platelet count. Coagulation panel unremarkable. Electrolytes are unremarkable but he does have a kidney injury with elevated BUN and creatinine likely dehydration. Normal glucose. Normal LFTs. Normal lipase. Negative initial troponin. Negative delta troponin. Repeat EKG is nonischemic. No significant oval change to prior EKG in 2023. Chest CT angiography shows no pulmonary embolism. He has some regions of ground-glass opacities in the bilateral upper lobes possibly inflammatory or infectious with recommendations for 3 month follow-up low-dose CT. Chest x-ray is unremarkable. Patient is afebrile, no hypoxemia and no cough. Likely unrelated but given it could be infectious pathology will start him on antibiotics. Offered the patient admission to the hospital at this time for his SRI and possible pneumonia and for observation of his chest pain which has fully resolved during his ED stay but patient declined and would like to go home. Given strict return precautions and follow-up instructions with his PCP and ski lift mechanic as well as a prescription for Augmentin. Differential Diagnosis Differential Diagnosis: ACS, pneumonia, pneumothorax, pulmonary embolism, vascular issue. He states he feels better when he belches and sits up so could also be GI tract such as esophageal dysmotility. Lab Data MDM Lab Attestation statement: I personally reviewed the patient's lab results. 06/21/25 18:57 06/21/25 18:57 Labs: Lab Results 06/21/25 06/21/25 06/21/25 Range/Units 18:57 19:26 23:07 WBC 10.4 H (4.5-10.0) K/mm3 RBC 4.98 (4.6-6.20) M/mm3 Hgb 14.4 (14.0-18.0) g/dL Hct 44.4 (42.0-52.0) % MCV 89.2 (80-100) fl MCH 28.9 (26-34) pg MCHC 32.4 (32-36) g/dl RDW 13.9 (11.5-14.5) % Plt Count 188 (150-375) k/mm3 MPV 10.3 (7.4-10.4) fl Immature Gran % (Auto) 0.5 (0-0.5) % Neut % (Auto) 72.7 (45.5-73.1) % Lymph % (Auto) 18.8 (18.3-44.2) % [place] % (Auto) 6.2 (2.6-8.5) % Eos % (Auto) 1.3 (0-4.4) % Baso % (Auto) 0.5 (0.2-1.2) % Lymph # (Auto) 1.96 (0.9-3.2) K/mm3 [place] # (Auto) 0.6 (0.1-0.6) K/mm3 Eos # (Auto) 0.1 (0-0.3) K/mm3 Baso # (Auto) 0.1 (0.0-0.1) K/mm3 Abs Immat Gran (auto) 0.05 H (0.00-0.031) K/mm3 Absolute Neuts (auto) 7.6 H (1.3-6.7) K/mm3 Absolute Nucleated RBC 0.000 (0.0-0.012) K/mm3 Nucleated RBC % 0.0 (0.0-0.2) % PT 13.3 (11.1-14.7) Seconds INR 1.0 APTT 30.5 (22.3-36.8) Seconds Sodium 135 L (137-145) mmol/L Potassium 5.0 (3.4-5.0) mmol/L Chloride 106 (98-107) mmol/L Carbon Dioxide 20 L (22-30) mmol/L Anion Gap 9 (4-12) mmol/L BUN 48 H D (9-20) mg/dL Creatinine 1.99 H (0.7-1.3) mg/dL Estim Creat Clear Calc 35 ml/min Estimated GFR 33 L (59 - ) Glucose 112 H (65-110) mg/dL Calcium 9.7 (8.4-10.2) mg/dL Total Bilirubin 0.4 (0.2-1.3) mg/dL AST 27 (17-59) U/L ALT 27 (6-50) U/L Alkaline Phosphatase 98 (38-126) U/L Troponin I < 0.012 < 0.012 (0.000-0.034) ng/mL Total Protein 7.1 (6.3-8.2) g/dL Albumin 4.1 (3.5-5.1) g/dL Lipase 67 (23-300) U/L Imaging Data Attestation: I personally reviewed and interpreted this imaging study as follows: Radiologist's impression: ITS Impressions Chest X-Ray 06/21/25 19:10 IMPRESSION: 1. No acute cardiopulmonary disease. Chest CTA 06/21/25 20:05 IMPRESSION: 1. No pulmonary embolism. 2. Regions of groundglass opacity in the bilateral upper lobes and superior segment right lower lobe which are likely infectious/inflammatory in etiology. Consider 3 month follow-up low-dose chest CT. Discharge Plan Discharge Clinical Impression: Pneumonia, Chest pain, SRI (acute kidney injury) Patient Disposition: Home Condition: Stable Instructions: Antibiotic Form, Chest Pain (ED), Pneumonia (ED) Additional Instructions: CT scan shows no blood clots or any acute cardiac anomalies identified any blood tests. You do have a bit of a kidney injury likely dehydration which we helped with fluids here and you also have possibility of pneumonia in the upper lobes your lung so we will treat this with a course of antibiotics. Take the antibiotics as prescribed and maintain good oral hydration. We did offer you admission here for observation and treatment but he would like to go home so please follow-up closely with your primary care provider and ski lift mechanic and return with any issues worsening symptoms or emergencies. Patient Language: Hebrew Prescriptions: New amoxicillin-pot clavulanate 875-125 mg tablet 1 tablet PO Q12H 7 Days Qty: 14 0RF No Action carvedilol 6.25 mg tablet 6.25 mg PO BID atorvastatin 20 mg tablet 20 mg PO QAM isosorbide mononitrate 30 mg tablet extended release 24 hr 15 mg PO DAILY Rx Instructions: At lunch clopidogrel 75 mg tablet 75 mg PO QAM tamsulosin 0.4 mg capsule 0.4 mg PO DAILY Rx Instructions: Takes in evening lisinopril 5 mg tablet 5 mg PO DAILY digoxin 125 mcg (0.125 mg) tablet 125 mcg PO DAILY Rx Instructions: Takes at lunch furosemide 20 mg tablet 20 mg PO PRN finasteride 5 mg tablet 5 mg PO DAILY Imbruvica 140 mg capsule 140 mg PO DAILY Rx Instructions: Daily at lunch loperamide [Anti-Diarrheal (loperamide)] 2 mg Tablet 2 mg PO Q4H PRN (Reason: Diarrhea) Rx Instructions: administer after each loose stool until symptoms controlled; do not exceed 8 mg per 24 hrs pantoprazole 40 mg Tablet,Delayed Release (Dr/Ec) 40 mg PO HS nitroglycerin 0.4 mg Tablet, Sublingual 0.4 mg SUBLINGUAL Q5-15M PRN (Reason: Chest Pain) Rx Instructions: do not exceed 3 doses per episode aspirin 81 mg Tablet 81 mg PO DAILY lorazepam 1 mg Tablet 1 mg PO DAILY PRN (Reason: Anxiety) ergocalciferol (vitamin D2) 1,000 unit Capsule 2,400 unit PO DAILY calcitriol 0.25 mcg capsule 0.25 mcg PO DAILY Follow-up/Referrals: Omero,MD Wilner [Primary Care Provider, Unknown] Time of Disposition: 23:43
[2025-06-21 19:27] LABS: Troponin I < 0.012 ng/mL (0.000-0.034)
[2025-06-21 19:39] VITALS: PULSE 82
[2025-06-21] MEDS: ASPIRIN 81 MG CHEWABLE TABLET 324 MG PO (19:44)
[2025-06-21 19:46] VITALS: BP 106/70; PULSE 79; RESP 17; O2SAT 91
--- OUTSIDE RECORDS SUMMARY | 2025-06-21 19:50 | XMS_ITS | Clinical Summary ---
Author Organization [facility] 2 Address [address] [place] [address] Care Team Providers Care Fast Food Shift Supervisor Name Role Phone Shalom Burrows MD Unavailable [phone] Mark Anthony Jamil MD Primary Care Provide r Allergies Active Allergy Reactions Criticality Noted Date Comments Tetracycline Medications pantoprazole DR (PROTONIX) 40 mg EC tablet Take by mouth daily Active digoxin (LANOXIN) 125 mcg tablet Take by mouth daily Active diphenoxylate-a tropine (LOMOTIL) 2.5-0.025 mg per tabletIndicatio ns:diarrhea daily as needed Active aspirin 81 mg tablet Take 1 tablet (81 mg total) by mouth daily Active atorvastatin (LIPITOR) 20 mg tablet TK 1 T PO QD 1 9 Active clopidogrel (PLAVIX) 75 mg tablet TK 1 T PO QD 2 9 Active isosorbide mononitrate ER (IMDUR) 30 mg 24 hr tablet Take 0.5 tablets (15 mg total) by mouth daily 2 9 Active lisinopril (PRINIVIL,ZESTR IL) 5 mg tablet Take 2 tablets (10 mg total) by mouth daily 1 9 Active nitroglycerin (NITROSTAT) 0.4 mg SL tablet DENISE 1 9 Active ergocalciferol, vitamin D2, 2,000 unit tablet Take 2,400 Units by mouth daily. Active carvedilol (COREG) 6.25 mg tablet Take by mouth 2 (two) times a day with meals 9 Active furosemide (LASIX) 20 mg tablet every other day 0 Active LORazepam (ATIVAN) 1 mg tabletIndicatio ns:anxiety Take 1 tablet (1 mg total) by mouth as needed for anxiety or sleep 30 tablet 2 Active ibrutinib (Imbruvica) 140 mg capsuleIndicati ons:Small B-cell lymphoma, unspecified body region (HCC) TAKE 1 CAPSULE BY MOUTH ONCE DAILY WITH A FULL GLASS OF WATER 30 capsule 11 5 Active finasteride (PROSCAR) 5 mg tabletIndicatio ns:BPH with obstruction/low er urinary tract symptoms Take 1 tablet (5 mg total) by mouth daily 90 tablet 3 5 Active tamsulosin (FLOMAX) 0.4 mg extended release capsule TAKE 1 CAPSULE BY MOUTH DAILY 100 capsule 2 5 Active tamsulosin (FLOMAX) 0.4 mg extended release capsule TAKE 1 CAPSULE BY MOUTH DAILY 60 capsule 5 5 025 Discontinued Active Problems Problem Noted Date Diagnosed Date 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 03/13/2021 Prostate cancer 09/24/2018 Chronic lymphocytic leukemia (CLL), B-cell 01/05 Encounters Date Type Department Care Team Description 04/03/2025 8:45 AM CDT Office Visit [facility] Physicians [facility] Oncology [address] [place] [address] Office [facility] [address] [place] [address] Merlyn Lewis, NETTIE Chronic lymphocytic leukemia of B-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 (HCC) (Primary Dx) 04/03/2025 8:15 AM CDT Lab [address] [place] [address] Chronic lymphocytic leukemia of B-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 (HCC) 03/30/2025 Telephone [facility] Medicine Surgery [address] [place] [phone] Shannon Diaz BS 03/22/2025 Telephone [facility] Medicine Physicians [facility] Oncology [address] [place] [address] Medical Office [facility] [address] [place] [phone] Shalom Burrows MD from Last 3 Months Immunizations Immunization Administration Dates Next Due Influenza, Quadrivalent, Hig h Dose, Preservative Free, Intrr 06/09/2023,04/08/2022,04/25/2020 Influenza, Unspecified 04/20/2019,04/04/2018 Deloris (J&J) SARS-CoV-2 Vaccination 08/27/2020 Moderna Sars-cov-2 Bivalent Vaccine 50 Mcg/0.5 mL (12+ YRS)-Blue/Gonzalez 06/18/2022 Pneumococcal Polysaccharide PPV23 02/25/2024 Pneumococcal, Unspecified 06/14/2019 Td, adsorbed 11/17/2019 Surgical History Surgery Date Site/Laterality Comments CARDIAC STENT PLACEMENT COLONOSCOPY GALLBLADDER SURGERY BIOPSY OTHER SURGICAL HISTORY lymph node removal BACK SURGERY OTHER SURGICAL HISTORY disc surgery CARPAL TUNNEL RELEASE Medical History Medical History Date Comments Personal history of other benign neoplasm History of lipoma - (Added by TW Conv) HTN (hypertension) CAD (coronary artery disease) Lymphoma (HCC) Prostate cancer (HCC) CLL (chronic lymphocytic leukemia) Family History Medical History Relation Name Comments Diabetes Mother's Sister Relation Name Status Comments Mother's Sister Social History Tobacco Use Types Packs/Day Years Used Date Smoking Tobacco: Former Cigarettes 3 20 1 5 - 2004 Smokeless Tobacco: Former Snuff Alcohol Use Standard Drinks/Week Comments No 0 (1 standard drink = 0.6 oz pur e alcohol) AUDIT-C Answer Date Recorded Q1: How often do you have a drink containing alcohol? Never 03/25/2024 Q2: How many drinks containi ng alcohol do you have on a typical day when you are drinking? Patient does not drink Q3: How often do you have si x or more drinks on one occasion? Never 03/25/2024 Sex and Gender Information Value Date Recorded Sex Assigned at Not on file Legal Sex Male 11:54 AM DATA ENTRY MANAGER Gender Identity Male 09/05/2020 8:25 AM CDT Sexual Orientation Straight 09/05/2020 8: 25 AM CDT Last Filed Vital Signs Vital Sign Reading Time Taken Comments Blood Pressure 174/71 04/03/2025 8:25 AM CDT Pulse 66 04/03/2025 8:25 AM CDT Temperature 36.3 C (97.3 F) 04/03/2025 8:25 AM CDT Respiratory Rate 20 04/03/2025 8:25 AM CDT Oxygen Saturation 97% 04/03/2025 8:25 AM CDT Inhaled Oxygen Concentration - - Weight 101.6 kg (224 lb) 04/03/2025 8:25 AM CDT Height 177.8 cm (5' 10) 08/22/2024 8:49 AM DATA ENTRY MANAGER Body Mass Index 32.14 08/22/2024 8:49 AM DATA ENTRY MANAGER Plan of Treatment Health Maintenance Due Date Last Done Comments Colon Cancer Screening-Colonoscopy 1950 Depression Screening 1950 Fall Risk Assessment 1950 Hepatitis C Screening 1950 Hepatitis B Screening 1969 Zoster Vaccine (1 of 2) 1970 Abdominal Aortic Aneurysm (A AA) Screen 01/07/2016 Well Visit 65+ 01/07/2016 DTaP/Tdap/Td Vaccine (1 - Tdap) 11/18/2019 0 Covid-19 Vaccine (5 - 2024-2 6 season) 2025 07/02/2023, 06/18/2022, 05/27/2021, Additional history exists Influenza Vaccine (#1) 2025 3, 04/08/2022, 04/25/2020, Additional history exists Pneumococcal vaccine 65+ (2 of 2 - PCV) 02/24/2025 02/25/2024, 06/14/2019 Prostate Cancer Screening-PSA Discontinued , 11/17/2023, 11/14/2022, Additional history exists Procedures Procedure Name Priority Date/Time Associated Diagnosis Comments EGFR Routine 04/03/2025 8:15 AM CDT Chronic lymphocytic leukemia of B-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 (HCC) DIFFERENTIAL AUTO Routine 04/03/2025 8:1 5 AM CDT Chronic lymphocytic leukemia of B-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 (HCC) CBC WITH AUTO DIFFERENTIAL Routine 04/03/2025 8:15 AM CDT Chronic lymphocytic leukemia of B-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 73 m2 Comment: Interpretive Data Reference Interval Normal >/= 90 mL/min/1.73m2 Mildly decreased* 60 - 89 mL/min/1.73m2 Mildly to moderately decreased 45 - 59 mL/min/1.73m2 Moderately to severely decreased 30 - 44 mL/min/1.73m2 Severely decreased 15 - 29 mL/min/1.73m2 Kidney Failure < 15 mL/min/1.73m2 *Relative to young adult level Estimated glomerular filtration rate is determined by the 2020 CKD-EPI equation recommended by the National Kidney Foundation (A Unifying Approach to GFR Estimation: Recommendations of the NKF-ASK Task Force on Reassessing the Inclusion of Race in Diagnosing Kidney Disease, JASN 2020). The CKD-EPI equation should not be used for patients with unstable renal function and has not been validated in children and those over 70. Current interpretive data was last reviewed 2021. Testing performed by: [facility], [place], [address] Blood 04/03/2025 8:15 AM CDT 04/03/2025 8:30 AM CDT us Mitchell Valdez NP LAB BLOOD ORDERABLES F inal Result [facility] ([place]) 1 [facility] Department [place] [address] * Differential, auto (04/03/2025 8:15 AM CDT) Neutrophil abs 5.07 1.50 - 6.50 K/cumm [facility] ([place]) Comment:Testing performed by : [facility] [address], Medical Office [facility] B [facility] [address], [place] [address] Imm gran abs 0.03 0.00 - 0.10 K/cumm [facility] ([place]) Comment:Testing performed by : [facility] [address], Medical Office [facility] [address], [place] [address] Lymphocyte abs 1.67 0.80 - 3.30 K/cumm [facility] ([place]) Comment:Testing performed by : [facility] [address], Medical Office [facility] [address], [place] [address] Monocyte abs 0.38 0.20 - 0.80 K/cumm [facility] ([place]) Comment:Testing performed by : [facility] [address], Medical Office [facility] [address], [place] [address] Eosinophil abs 0.14 0.00 - 0.50 K/cumm [facility] ([place]) Comment:Testing performed by : [facility] [address], Medical Office [facility] [address], [place] [address] Basophil abs 0.03 0.00 - 0.10 K/cumm [facility] ([place]) Comment:Testing performed by : [facility] [address], Medical Office [facility] [address], [place] [address] Neutrophil pct 69.3 % [facility] ([place]) Comment: Interpretive Data Percent cell count reference ranges are not reported, since discordance with absolute values may lead to misinterpretation of CBC data. Current Interpretive Data was last revised on 2022. Testing performed by: [facility] [address], Medical Office [facility] [address], [place] [address] Imm gran pct 0.4 % [facility] ([place]) Comment: Interpretive Data Percent cell count reference ranges are not reported, since discordance with absolute values may lead to misinterpretation of CBC data. Current Interpretive Data was last revised on 2022. Testing performed by: [facility] [address], Medical Office [facility] [address], [place] [address] Lymphocyte pct 22.8 % [facility] ([place]) Comment: Interpretive Data Percent cell count reference ranges are not reported, since discordance with absolute values may lead to misinterpretation of CBC data. Current Interpretive Data was last revised on 2022. Testing performed by: [facility] [address], Medical Office [facility] [address], [place] [address] Monocyte pct 5.2 % [facility] ([place]) Comment: Interpretive Data Percent cell count reference ranges are not reported, since discordance with absolute values may lead to misinterpretation of CBC data. Current Interpretive Data was last revised on 2022. Testing performed by: [facility] [address], Medical Office [facility] [address], [place] [address] Eosinophil pct 1.9 % [facility] ([place]) Comment: Interpretive Data Percent cell count reference ranges are not reported, since discordance with absolute values may lead to misinterpretation of CBC data. Current Interpretive Data was last revised on 2022. Testing performed by: [facility] [address], Medical Office [facility] B [facility] [address], [place] [address] Basophil pct 0.4 % [facility] ([place]) Comment: Interpretive Data Percent cell count reference ranges are not reported, since discordance with absolute values may lead to misinterpretation of CBC data. Current Interpretive Data was last revised on 2022. Testing performed by: [facility] [address], Medical Office [facility] [address], [place] [address] Blood 04/03/2025 8:15 AM CDT 04/03/2025 8:21 AM CDT us Mitchell Valdez NP LAB BLOOD ORDERABLES F inal Result [facility] ([place]) 1 [facility] [place] [address] * CBC with auto differential (04/03/2025 8:15 AM CDT) WBC 7.32 3.80 - 9.90 K/cumm [facility] ([place]) Comment:Testing performed by : [facility] Ctr [address], Medical Office [address], [place] [address] Hgb 14.3 13.0 - 17.5 g/dL [facility] ([place]) Comment:Testing performed by : [facility] [address], Medical Office [address], [place] [address] Hct 44.2 38.9 - 50.3 % [facility] ([place]) Comment:Testing performed by : [facility] [address], Medical Office [address], [place] [address] Plt 179 150 - 400 K/cumm [facility] ([place]) Comment:Testing performed by : [facility] [address], Medical Office [address], [place] [address] MPV 10.4 9.1 - 12.3 fL [facility] ([place]) Comment:Testing performed by : [facility] [address], Medical Office [address], [place] [address] RBC 4.86 4.30 - 5.80 M/cumm [facility] ([place]) Comment:Testing performed by : [facility] [address], Medical Office [address], [place] [address] MCV 90.9 81.3 - 96.4 fL [facility] ([place]) Comment:Testing performed by : [facility] [address], Medical Office [address], [place] [address] MCH 29.4 27.1 - 33.3 pg [facility] ([place]) Comment:Testing performed by : [facility] [address], Medical Office [address], [place] [address] MCHC 32.4 32.3 - 35.7 g/dL [facility] ([place]) Comment:Testing performed by : [facility] [address], Medical Office [address], [place] [address] RDW CV 13.5 11.1 - 14.9 % [facility] ([place]) Comment:Testing performed by : [facility] [address], Medical Office [facility] [address], [place] [address] RDW SD 45.6 35.7 - 48.1 fL [facility] ([place]) Comment:Testing performed by : [facility] Ctr [address], Medical Office [facility] B [facility] [address], [place] [address] Blood 04/03/2025 8:15 AM CDT 04/03/2025 8:21 AM CDT Mitchell Valdez NP LAB BLOOD ORDERABLES F inal Result [facility] ([place]) [address] [place] [address] Department [email or web address] [address] * Lactate dehydrogenase (LD) (04/03/2025 8:15 AM CDT) Lactate dehydrogenase (LDH) 163 100 - 250 Units/L Comment:Testing performed by : [place], [address] Blood 04/03/2025 8:15 AM CDT 04/03/2025 8:30 AM CDT Mitchell Valdez NP LAB BLOOD ORDERABLES F inal Result Performing Organization Address [facility]/ZIP Co de Phone Number [facility] ([place]) [address] [place] [address] Department [email or web address] [address] * Comprehensive metabolic panel (04/03/2025 8:15 AM CDT) Sodium 141 135 - 145 mmol/L Comment:Testing performed by : [place], [address] Potassium, pl 4.5 3.3 - 4.9 mmol/L [facility] ([place]) Comment:Testing performed by : [place], [address] Chloride 105 97 - 110 mmol/L [facility] ([place]) Comment:Testing performed by : [place], [address] CO2 27 22 - 32 mmol/L [facility] ([place]) Comment:Testing performed by : [facility], [facility], [place], [address] Anion gap 9 2 - 15 mmol/L [facility] ([place]) Comment:Testing performed by : [facility], [facility], [place], [address] BUN 18 6 - 25 mg/dL [facility] ([place]) Comment:Testing performed by : [facility], [place], [address] Creatinine 1.28 0.80 - 1.30 mg/dL [facility] ([place]) Comment:Testing performed by : [facility], [place], [address] Glucose 106 70 - 199 mg/dL [facility] ([place]) Comment: Interpretive Data Fasting glucose >/= 126 mg/dl is diagnostic for diabetes. Fasting is defined as no caloric intake for at least 8 hours. Fasting glucose between 100 mg/dl to 125 mg/dl is diagnostic of prediabetes. In a patient with classic symptoms of hyperglycemia or hyperglycemic crisis, a random glucose >/= 200 mg/dl is diagnostic for diabetes. In the absence of unequivocal hyperglycemia, results should be confirmed by repeat testing. The classification and Diagnosis of Diabetes Diabetes Care 2021; 46: S19-S40. Current interpretive data was last revised 2022. Testing performed by: [facility], [place], [address] Calcium 9.2 8.5 - 10.3 mg/dL [facility] ([place]) Comment:Testing performed by : [facility], [place], [address] Bilirubin, total 0.3 0.1 - 1.2 mg/dL [facility] ([place]) Comment:Testing performed by : [facility], [place], [address] Protein, pl 6.7 6.5 - 8.5 g/dL [facility] ([place]) Comment:Testing performed by : [facility], [place], [address] Albumin 4.2 3.5 - 5.0 g/dL [facility] ([place]) Comment:Testing performed by : [facility], [place], [address] Alk phos 115 40 - 130 Units/L [facility] ([place]) Comment:Testing performed by : [facility], [facility], [place], [address] ALT 30 7 - 55 Units/L [facility] ([place]) Comment:Testing performed by : [facility], [facility], [place], [address] AST 21 10 - 50 Units/L [facility] ([place]) Comment:Testing performed by : [facility], [facility], [place], [address] Blood 04/03/2025 8:15 AM CDT 04/03/2025 8:30 AM CDT us Mitchell Valdez NP LAB BLOOD ORDERABLES F inal Result [facility] ([place]) 1 [facility] Department [place] [address] * PSA diagnostic (11/02/2024 8:15 AM CDT) [facility] [place] [facility] PSA 2.0 0.0 - 4.0 ng/mL [facility] - 01 Comment: [place] ECLIA methodology. According to the [place] [employer], Serum PSA should decrease and remain at undetectable levels after radical prostatectomy. The AUA defines biochemical recurrence as an initial PSA value 0.2 ng/mL or greater followed by a subsequent confirmatory PSA value 0.2 ng/mL or greater. Values obtained with different assay methods or kits cannot be used interchangeably. Results cannot be interpreted as absolute evidence of the presence or absence of malignant disease. Blood 11/02/2024 8:15 AM CDT 11/02/2024 Narrative [facility] - 11/03/2024 5:09 PM CDT Performed at: [facility] [id number] Integrated Marketing Intern: Dennis Peralta PhD, Phone: [phone] us George Etienne MD LAB BLOOD ORDERABLES Final Resul t [facility] - 01 from Last 3 Months or Most Recently Relevant to Health Maintenance Insurance [place] [phone] [employer]HC MEDICARE ADVANTAGE [place] [phone] [place] [phone] Care Teams Fast Food Shift Supervisor Relationship Specialty Start Date End Date Mark Anthony Jamil MD [address] [address] PCP - General Internal Medicine 05/09/22 Shalom Burrows MD Medical Oncologist/Control Room Agent Hematology and Oncology 01/14/18
[2025-06-21 19:51] LABS: INR 1.0; Prothrombin Time 13.3 Seconds (11.1-14.7)
--- OUTSIDE RECORDS SUMMARY | 2025-06-21 19:51 | XMS_ITS | Data Portability ---
Author Organization [place] [facility] [employer], Main Office Address [address] [place] [address] Care Team Providers Care Mother Superior Name Role Phone WILNER JAMIL Primary Care Provider [phone] WILNER JAMIL Referring Provider Assessment Encounter Date Assessment Date Assessment LastModified by Organization Details LastModified Time 10/06/2023 10/06/2023 07/08/2022: Cr 1.35, GFR 56, gluc 101 A1C 5.9 Vit D WN 12/04/2022: Gluc 102, Cr 1.34, GFR 57 A1C 6.0 05/29/2023: TG 151 GFR 50 A1C 6.2 08/04/2023: Fadi ER BUN 25, gluc 122 WBC 12.9 COVID 19 Neg 10/01/2023: A1C 6.1 Cr 1.65H, gluc 114, GFR 44 Not available 10/06/2023 11:09:40 02/25/2024 02/25/2024 07/08/2022: Cr 1.35, GFR 56, gluc 101 A1C 5.9 Vit D WNL 12/04/2022: Gluc 102, Cr 1.34, GFR 57 A1C 6.0 05/29/2023: TG 151 GFR 50 A1C 6.2 08/04/2023: Fadi ER BUN 25, gluc 122 WBC 12.9 COVID 19 Neg 10/01/2023: A1C 6.1 Cr 1.65H, gluc 114, GFR 44 02/08/2024: Gluc 110, Cr 1.46, GFR 50, ALKP 122 A1C 6.1 Not available 02/25/2024 14:13:58 08/16/2024 08/16/2024 07/08/2022: Cr 1.35, GFR 56, gluc 101 A1C 5.9 Vit D WNL 12/04/2022: Gluc 102, Cr 1.34, GFR 57 A1C 6.0 05/29/2023: TG 151 GFR 50 A1C 6.2 08/04/2023: Fadi ER BUN 25, gluc 122 WBC 12.9 COVID 19 Neg 10/01/2023: A1C 6.1 Cr 1.65H, gluc 114, GFR 44 02/08/2024: Gluc 110, Cr 1.46, GFR 50, ALKP 122 A1C 6.1 07/19/2024: Gluc 111, Cr 1.43, GFR 52 TG 160 Not available 08/16/2024 16:02:20 11/15/2024 11/15/2024 07/08/2022: Cr 1.35, GFR 56, gluc 101 A1C 5.9 Vit D WNL 12/04/2022: Gluc 102, Cr 1.34, GFR 57 A1C 6.0 05/29/2023: TG 151 GFR 50 A1C 6.2 08/04/2023: Fadi ER BUN 25, gluc 122 WBC 12.9 COVID Neg 10/01/2023: A1C 6.1 Cr 1.65H, gluc 114, GFR 44 02/08/2024: Gluc 110, Cr 1.46, GFR 50, ALKP 122 A1C 6.1 07/19/2024: Gluc 111, Cr 1.43, GFR 52 TG 160 11/02/2024: Gluc 118, Cr./GFR 1.57/46, ALP 133 A1C 6.5 Not available 11/15/2024 14:26:01 03/14/2025 03/14/2025 07/08/2022: Cr 1.35, GFR 56, gluc 101 A1C 5.9 Vit D WNL 12/04/2022: Gluc 102, Cr 1.34, GFR 57 A1C 6.0 05/29/2023: TG 151 GFR 50 A1C 6.2 08/04/2023: Fadi ER BUN 25, gluc 122 WBC 12.9 COVID Neg 10/01/2023: A1C 6.1 Cr 1.65H, gluc 114, GFR 44 02/08/2024: Gluc 110, Cr 1.46, GFR 50, ALKP 122 A1C 6.1 07/19/2024: Gluc 111, Cr 1.43, GFR 52 TG 160 11/02/2024: Gluc 118, Cr./GFR 1.57/46, ALP 133 A1C 6.5 03/07/2025: Gluc 101 Cr 1.84, GFR 38 A1C 6.1 [email or web address] Not available 03/14/2025 14:43:45 Plan of Treatment Reminders Order Date Submit Date Provider Last Modified By Organization Details Last Modified Time Details Appointments Medicare Wellness 15 2025 01:15P Laura atkinson MD Not available Not available Not available Lab HbA1c (hemoglob in A1c), blood 2024 025 [email or web address] [facility], [address], [place], [address], 03/14/2025 14:51:17 microalbu min, urine 2024 025 [email or web address] [facility], [facility] [address], [address], [place], [address], 03/14/2025 14:51:18 lipid panel, serum 2024 025 [email or web address] [facility], [facility] [address], [address], [place], [address], 03/14/2025 14:51:12 CMP, serum or plasma 2024 025 [email or web address] [facility], [facility] [address], [address], [place], [address], 03/14/2025 14:51:13 CBC w/ auto diff 2024 025 [email or web address] [facility], [address], [address], [place], [address], 03/14/2025 14:51:15 TSH + free T4, serum 2024 025 [email or web address] [facility], [facility] [address], [address], [place], [address], 03/14/2025 14:51:16 HbA1c (hemoglob in A1c), blood 2024 025 LUIS FELIPE [facility], [address] [facility], [address], [place], [address], 03/08/2025 07:37:18 microalbu min, urine 2024 025 LUIS FELIPE [facility], [address] [facility], [facility] [address], [place], [address], 03/08/2025 07:37:19 lipid panel, serum 2024 025 LUIS FELIPE [facility], [facility], [facility] 2, [place], [address], 03/08/2025 07:37:19 CMP, serum or plasma 2024 025 LUIS FELIPE [facility], [facility], [facility] [address], [place], [address], 03/08/2025 07:37:19 CBC w/ auto diff 2024 025 LUIS FELIPE [facility], [address] [place] [address], [facility] 2, [place], [address], 03/08/2025 07:37:18 TSH + free T4, serum 2024 025 LUIS FELIPE [facility], [facility], [facility] [address], [place], [address], 03/08/2025 07:37:18 HbA1c (hemoglob in A1c), blood 2024 025 [email or web address] [facility], [facility], [address], [place], [address], 02/14/2025 11:40:43 microalbu min, urine 2024 025 [email or web address] [facility], [facility], [address], [place], [address], 02/14/2025 11:40:43 noninvasi ve colorecta l cancer DNA + occult blood screening , QL, stool 2024 025 [employer] [facility], [address], [address], [place], [address], 02/13/2025 10:36:14 lipid panel, serum 2024 025 LUIS FELIPE [facility], [address] [place] [address], [facility] 2, [place], [address], 10/21/2024 10:52:25 CMP, serum or plasma 2024 025 LUIS FELIPE [facility], [address] [place] [address], [facility] [address], [place], [address], 11/03/2024 12:57:21 CBC w/ auto diff 2024 025 [employer] [facility], [address] [place] [address], [facility] 2, [place], [address], 10/21/2024 08:34:53 TSH + free T4, serum 2024 025 LUIS FELIPE [facility], [address] [place] [address], [facility] 2, [place], [address], 11/03/2024 12:57:21 HbA1c (hemoglob in A1c), blood 2023 024 [employer] [facility], [address] [place] [address], [facility] [address], [place], [address], 08/30/2024 10:04:11 microalbu min, urine 2023 024 [email or web address] [facility], [address] [place] [address], [facility] [address], [place], [address], 08/30/2024 10:04:11 lipid panel, serum 2023 024 [email or web address] [facility], [address] [place] [address], [facility] [address], [place], [address], 08/30/2024 10:04:10 CMP, serum or plasma 2023 024 [email or web address] [facility], [address] [place] [address], [place], [address], 08/30/2024 10:04:10 CBC w/ auto diff 2023 024 [email or web address] [facility], [address] [place] [address], [place], [address], 08/30/2024 10:04:10 TSH + free T4, serum 2023 024 [email or web address] [facility], [address] [place] [address], [place], [address], 08/30/2024 10:04:11 noninvasi ve colorecta l cancer DNA + occult blood screening , QL, stool 2023 024 [employer] [facility], [address], [address], [place], [address], 04/02/2024 02:36:31 HbA1c (hemoglob in A1c), blood 2023 024 [facility], [address] [place] [address], [place], [address], 04/04/2024 11:45:41 microalbu min, urine 2023 024 [facility], [address] [place] [address], [place], [address], 04/04/2024 11:45:41 lipid panel, serum 2023 024 [email or web address] [facility], [address] [place] [address], [place], [address], 04/04/2024 11:45:40 CMP, serum or plasma 2023 024 [email or web address] [facility], [address] [facility] 2, [place], [address], 04/04/2024 11:45:40 CBC w/ auto diff 2023 024 [facility], [address] [facility] 2, [place], [address], 04/04/2024 11:45:40 TSH + free T4, serum 2023 024 [email or web address] [facility], [address] [facility] 2, [place], [address], 04/04/2024 11:45:41 Referral nephrolog ist referral - Please call patient to schedule an appointme nt. Thank you. 2024 025 [email or web address] Farzad Escobedo MD (Nephrology, [address] [facility], [address], [place], [address], 06/13/2025 15:56:43 diabetic ophthalmo logy referral - Please call patient to schedule an appointme nt. Thank you. 2024 025 [email or web address] Shukri Phillips, [address] [facility], [place], [address], 06/13/2025 15:56:42 podiatris t referral - Please call patient to schedule an appointme nt. Thank you. 2024 025 [email or web address] Rohan Treadwell DPM, [address] [facility], [address], [place], [address], 06/13/2025 15:56:[address] referral - Please call patient to schedule an appointme nt. Thank you. 2024 025 [email or web address] Jer Sanchez MD, [address] [facility], [address] [place] [address], [address], 06/13/2025 15:56:43 diabetic ophthalmo logy referral - Please call patient to schedule an appointme nt. Thank you. 2024 025 Shukri Phillips, [address] [facility], [place], [address], 02/13/2025 11:22:55 podiatris t referral - Please call patient to schedule an appointme nt. Thank you. 2024 025 Rohan Treadwell DPM, [address] [facility], [facility] 25, [place], [address], 02/13/2025 11:22:[address] referral - Please call patient to schedule an appointme nt. Thank you. 2024 025 [email or web address] Jer Sanchez MD, [address] [place] [address], [address], 02/14/2025 11:58:35 diabetic ophthalmo logy referral - Please call patient to schedule an appointme nt. Thank you. 2024 025 [email or web address] Phillips, [address] [facility], [place], [address], 03/14/2025 09:06:34 podiatris t referral - Please call patient to schedule an appointme nt. Thank you. 2024 025 [email or web address] Rohan Treadwell DPM, [address] [facility], [facility] [address], [place], [address], 03/14/2025 09:06:[address] referral - Please call patient to schedule an appointme nt. Thank you. 2024 [email or web address] [place] [address] - Neurology, [address], [place], [address], 11/16/2024 15:40:30 diabetic ophthalmo logy referral - Per [facility] website, patient's plan does not require an insurance referral 2023 024 [email or web address] Phillips, [address], [place], [address], 02/25/2024 14:47:51 podiatris t referral - Per [facility] website, patient's plan does not require an insurance referral 2023 024 [email or web address] Rohan Treadwell DPM, [address], [address], [place], [address], 02/25/2024 14:47:[address] referral - Per [facility] website, patient's plan does not require an insurance referral 2023 024 [email or web address] Leon MD, [address], [address], [place], [address], 02/25/2024 14:47:52 diabetic ophthalmo logy referral - Per [facility] website, patient's plan does not require an insurance referral 2023 024 [email or web address] [employer], [address], [place], [address], 04/04/2024 12:50:39 podiatris t referral - Per [facility] website, patient's plan does not require an insurance referral 2023 024 [email or web address] Rohan Treadwell DPM, [address], [address], [place], [address], 04/04/2024 12:51:18 urologist referral - Per [facility] website, patient's plan does not require an insurance referral 2023 024 George Etienne MD, [address] [facility], [address], [place], [address], 04/04/2024 12:51:[address] referral - Per [facility] website, patient's plan does not require an insurance referral 2023 024 [email or web address] Paola Leon MD, [address], [address], [place], [address], 05/02/2024 09:20:49 Procedures None recorded. Surgeries None recorded. Imaging None recorded. Medication Orders None recorded. Patient TargetsNo targets recorded. Patient Instructions Encounter Date Encounter Id Patient Instructions Last Modified By Organization Details Last Modified Time 02/25/2024 [id number] dementia rating scale-2* [email or web address] Not available 02/25/2024 14:56:37 alcohol misuse* [email or web address] Not available 02/25/2024 14:56:55 depression screening* Not available 02/25/2024 14:57:07 Timed Up and Go test (TUG)* [email or web address] Not available 02/25/2024 14:57:17 multi-dimensiona l health assessment questionnaire* [email or web address] Not available 03/21/2024 18:51:03 Personalized [facility] Plan and Screening Recommendations Advance Directives - Do you have one? Yes Advance Directives - Do we have your advance directive on file in your health record? Yes Primary Prevention/Interven tion (prevents or decreases the chance of common diseases from occurring) Smoking Risk: Non Smoker Alcohol Misuse Screening: Negative Weight: Overweight try to lose 5% of your body weight Physical activity: Need more exercise/physical activity minimum of 10-20 minutes of activity that causes mild breathlessness/day Nutrition: Average Refer to attached handout Heart-Healthy Diet: After Your Visit Fall Risk (screened today): Intermediate Refer to attached handout Preventing Falls: After your Visit Vaccines Pneumococcal: Given today (PCV 23) Influenza: Your next one in the fall of this year Chronic Disease Risks Stroke: Intermediate Risk Follow Heart Healthy Diet. Heart Attack: Intermediate Risk Follow Heart Healthy Diet. Clogging of the Arteries: Intermediate Risk Follow Heart Healthy Diet. Diabetes: High Risk Drastically limit sugar and products made with any type of flour (bread, pasta, cereal, cookies, crackers, etc.) Secondary Prevention/Interven tion (detects treatable diseases before they may cause symptoms, disability, or ) Prostate Cancer Screening: No PSA screening necessary Colon Cancer Screening: Cologuard (DNA stool test) Date Screening Last Performed:Ordered Eye Disease Screening: Recommended today Dementia Risk: Low I have no recommendations Depression Screening: Negative [email or web address] Not available 02/25/2024 15:00:16 Reason for Referral Diabetic Ophthalmology Refer ral for Prediabetes Per [facility] website, patient's plan does not require an insurance referral Referring Physician: Flakito Recinos, Encounter Date: 10/06/2023 [employer] Firer Referral for Pred iabetes Per [facility] website, patient's plan does not require an insurance referral Referring Physician: Flakito Recinos, Encounter Date: 10/06/2023 Urologist Referral for Urina ry incontinence Per [facility] website, patient's plan does not require an insurance referral Referring Physician: Flakito Recinos, Encounter Date: 10/06/2023 Neurologist Referral for Uns teady when walking Per [facility] website, patient's plan does not require an insurance referral Referring Physician: Flakito Recinos, Encounter Date: 10/06/2023 Diabetic Ophthalmology Refer ral for Prediabetes Per [facility] website, patient's plan does not require an insurance referral Referring Physician: Flakito Recinos, Encounter Date: 02/25/2024 [employer] Fire[employer] Referral for Pred iabetes Per [facility] website, patient's plan does not require an insurance referral Referring Physician: Flakito Recinos, Encounter Date: 02/25/2024 Neurologist Referral for Uns teady when walking Per [facility] website, patient's plan does not require an insurance referral Referring Physician: Flakito Recinos, Encounter Date: 02/25/2024 Diabetic Ophthalmology Refer ral for Prediabetes Please call patient to schedule an appointment. Thank you. Referring Physician: Flakito Recinos, Encounter Date: 08/16/2024 [employer] Referral for Pred iabetes Please call patient to schedule an appointment. Thank you. Referring Physician: Flakito Recinos, Encounter Date: 08/16/2024 Neurologist Referral for Uns teady when walking Please call patient to schedule an appointment. Thank you. Referring Physician: Wilner Jamil Internal [facility], Encounter Date: 08/16/2024 Diabetic Ophthalmology Refer ral for Prediabetes Please call patient to schedule an appointment. Thank you. Referring Physician: Wilner Jamil Internal [facility], Encounter Date: 11/15/2024 [employer] Referral for Pred iabetes Please call patient to schedule an appointment. Thank you. Referring Physician: Wilner Jamil Internal [facility], Encounter Date: 11/15/2024 Neurologist Referral for Uns teady when walking Please call patient to schedule an appointment. Thank you. Referring Physician: Wilner Jamil Internal [facility], Encounter Date: 11/15/2024 Diabetic Ophthalmology Refer ral for Prediabetes Please call patient to schedule an appointment. Thank you. Referring Physician: Wilner Jamil Internal [facility], Encounter Date: 03/14/2025 [employer] Referral for Pred iabetes Please call patient to schedule an appointment. Thank you. Referring Physician: Wilner Jamil Internal [facility], Encounter Date: 03/14/2025 Neurologist Referral for Uns teady when walking Please call patient to schedule an appointment. Thank you. Referring Physician: Wilner Jamil Internal Medicine, Encounter Date: 03/14/2025 [employer] Referral for Ch ronic kidney disease Please call patient to schedule an appointment. Thank you. Referring Physician: Wilner Jamil Internal [facility], Encounter Date: 03/14/2025 Results Created Date Observation Date Name Description Value Unit Range Abnormal Flag Note LastModifiedBy Organization Detail LastModifiedTime 09/30/1909/29/2024 imagi ng/di tracyos tic resul t No observ ation record ed. [facility] [facility] [address], [place], [address], 09/29/2024 16:13:42 09/30/19 25 09/29/2024 imagi ng/di agnos tic resul t No observ ation record ed. [facility] [address], [place], [address], 09/29/2024 16:23:36 05/31/20 25 05/31/2025 imagi ng/di agnos tic resul t No observ ation record ed. [facility] [address], [place], [address], 05/31/2025 10:40:42 05/31/20 25 05/31/2025 imagi ng/di agnos tic resul t No observ ation record ed. [facility] [address], [place], [address], 05/31/2025 11:18:32 06/21/20 25 06/21/2025 imagi ng/di agnos tic resul t No observ ation record ed. [facility] [address], [place], [address], 06/21/2025 20:14:17 Result Notes None recorded. 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 [employer] 5 17:56:22 Gastroesophag eal reflux disease 454061200 Active 2021 Not Available [facility] 3 07:30:27 Urinary incontinence 484519565 Active 2021 Wilner rosado MD [address], [place], [address] , [facility] 5 17:56:20 Coronary arteriosclero sis 37364844 Active 2021 LISSETH Dugan null, [facility] 5 14:12:34 Hyperglycemia 35701996 Active 2021 Not Available [facility] 3 07:30:28 Generalized anxiety disorder 57982902 Active 2021 Wilner rosado MD [address], [place], [address] , [facility] 5 17:56:21 Atopic dermatitis 18373048 Active 2021 Not Available [facility] 3 07:30:28 Lymphedema of lower extremity 581240415 Active 2021 Not Available [facility] 3 07:30:28 Prediabetes 374829257 Active 2021 Wilner rosado MD [address], [place], [address] , [facility] 5 17:56:21 Hyperlipidemi a 85036713 Active 2022 Wilner rosado MD [address], [place], [address] , [facility] 5 17:56:20 Gastroesophag eal reflux disease without esophagitis 259645196 Active 2022 Wilner rosado MD [address], [place], [address] , [facility] 5 17:56:20 Benign prostatic hyperplasia without outflow obstruction 358334435 Active 2022 Wilner rosado MD [address], [place], [address] , [facility] 5 17:56:21 Chronic kidney disease 130114651 Active 2022 Wilner rosado MD [address], [place], [address] , [facility] [place] [employer] [facility] [employer] [facility] 5 14:47:34 Low back pain 985774127 Active 2022 Wilner rosado MD [address], [place], [address] , [facility] [place] [employer] [employer] 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 [place] [employer] [employer] [facility] 5 17:56:22 Unsteady when walking 17749227 Active 2023 Wilner rosado MD [address], [place], [address] , [employer] [facility] [employer] [facility] 5 17:56:22 Problem Notes None recorded. Procedures Surgical History Date Name Laterality Status Provider Name and Address Organization Details Recorded Time 02/25/20 24 Medicare Wellness CPT Code, subsequent completed Manuel Paula LPN [facility] [employer] [facility] 02/25/2024 08:53:33 12/19/19 23 Medicare Wellness CPT Code, Initial completed Kelsey Crabtree RN [facility] [employer] [facility] 12/18/2022 11:18:24 removal of foreign body completed Not Available [facility] 08/20/2022 07:26:51 Cardiac Stent Placement completed Not Available [facility] 08/20/2022 07:26:51 Cholecystectomy completed Not Available [facility] 08/20/2022 07:26:51 Back Surgeries completed Not Available [facility] 08/20/2022 07:26:51 Imaging Results None recorded. Procedure Notes None recorded. Medical Equipment None Reported. Allergies Allergen ID Allergen Name Allergen Category Reaction Reaction Severity Criticality Documentation Date Start Date Code Code System Note Provider Name and Address Organization Details Recorded Time 84305 tetracycl ine medicatio n Not available Not available Not available 08/20/2022 65095 RxNorm Not Available [facility] 3 07:34:48 Medications Name Sig Start Date Stop Date Status Note LastModified by Organization Details LastModified Time amoxicill in 500 mg capsule active Not Available Not Available Not Available carvedilo l 6.25 mg tablet TAKE 1 TABLET BY MOUTH TWICE DAILY 2024 active Not Available Not Available Not Avai lable prednison e 10 mg tablet active Not Available Not Available Not Available atorvasta tin 20 mg tablet TAKE 1 TABLET BY MOUTH ONCE DAILY 2024 active Not Available Not Available Not Avai lable desoximet asone 0.25 % topical cream 12/10 completed Not Available Not Available Not Available cetirizin e 10 mg tablet TK 1 T PO QHS 12/10 completed Not Available Not Available Not Available hydrocodo ne 5 mg-acetam inophen 325 mg tablet active Not Available Not Available Not Available isosorbid e mononitra te ER 30 mg tablet,ex tended release 24 hr TAKE ONE-HALF TABLET BY MOUTH DAILY 2024 active Not Available Not Available Not Avai lable diphenoxy late-atro pine 2.5 mg-0.025 mg tablet 12/10 completed Not Available Not Available Not Available clopidogr el 75 mg tablet TAKE 1 TABLET BY MOUTH ONCE DAILY 2024 active Not Available Not Available Not Avai lable digoxin 250 mcg (0.25 mg) tablet active Not Available Not Available Not Available ciproflox acin 500 mg tablet TK 1 T PO Q 12 H STARTING 1 DAY B THE PROCEDUR E 12/10 completed Not Available Not Available Not Available sulfameth oxazole 800 mg-trimet hoprim 160 mg tablet active Not Available Not Available Not Available aspirin 81 mg tablet,de layed release Take 1 tablet every day by oral route. 2021 active Not Available Not Available Not Avai lable carvedilo l 3.125 mg tablet 12/10 completed Not Available Not Available Not Available isosorbid e mononitra te ER 60 mg tablet,ex tended release 24 hr TAKE 1 TABLET BY MOUTH EVERY DAY 03/[address] Chapman said to go back to original dose Not Available Not Available Not Available triamcino lone acetonide 0.025 % topical cream APPLY TO THE AFFECTED AREA TWICE DAILY FOR 2 WEEKS 12/10 completed Not Available Not Available Not Available tamsulosi n 0.4 mg capsule take one capsule every day by oral route active Not Available Not Available No t Available benzonata te 100 mg capsule 12/10 completed Not Available Not Available Not Available hydrocodo ne 7.5 mg-acetam inophen 325 mg tablet TK 1 T PO BID PRN 12/10 completed Not Available Not Available Not Available pantopraz ole 40 mg tablet,de layed release TAKE 1 TABLET BY MOUTH DAILY 2024 active Not Available Not Available Not Avai lable nitroglyc samra 0.4 mg sublingua l tablet ONE TABLET UNDER TONGUE NEEDED FOR CHEST PAIN active Not Available Not Available No t Available monteluka st 10 mg tablet 12/10 completed Not Available Not Available Not Available lisinopri l 5 mg tablet TAKE 1 TABLET BY MOUTH DAILY 2024 active Not Available Not Available Not Avai lable digoxin 125 mcg (0.125 mg) tablet TAKE 1 TABLET BY MOUTH DAILY 2024 active Not Available Not Available Not Avai lable furosemid e 20 mg tablet TAKE 1 TABLET BY MOUTH DAILY NEEDED active Not Available Not Available No t Available lorazepam 1 mg tablet Take 1 tablet 3 times a day by oral route as needed for 10 days. active Not Available Not Available No t Available levofloxa sary 500 mg tablet active Not Available Not Available No t Available methylpre dnisolone 4 mg tablets in a dose pack TAKE DIRECTED 12/10 completed Not Available Not Available Not Available Vitamin D2 1,250 mcg (50,000 unit) capsule TK ONE C PO TWICE PER MONTH 04/08 completed Not Available Not Available Not Available finasteri de 5 mg tablet TAKE 1 TABLET BY MOUTH EVERY DAY active Not Available Not Available No t Available Antidiarr heal 2 mg tablet Take 1 tablet every day by oral route as needed. 2021 active Not Available Not Available Not Avai lable ranolazin e ER 500 mg tablet,ex tended release,1 2 hr TAKE 1 TABLET BY MOUTH TWICE A DAY 03/14 completed Not Available Not Available Not Available GaviLyte- G 236 gram-22.7 4 gram-6.74 gram-5.86 gram oral solution 12/10 completed Not Available Not Available Not Available Vitamin D2 2400 IU once a day 2021 active Not Available Not Available Not Avai lable Imbruvica 140 mg capsule Take 1 capsule every day by oral route for 30 days. active Not Available Not Available No t Available Vitals Date Recorded Body height Body mass index (BMI) Body weight Body temperature Heart rate Systolic And Diastolic Provider Name and Address Organization Details Last Updated DateTime 5 180.34 cm 31.8 kg/m2 431488. 06 g 97.5 [degF] 72 /min 118/60 mm[Hg] Janet Lang [facility] [place] [employer] [facility] [employer] [facility] 5 15:25:16 Date Recorded Body height Body mass index (BMI) Body weight Body temperature Heart rate Systolic And Diastolic Provider Name and Address Organization Details Last Updated DateTime 4 180.34 cm 31 kg/m2 549415. 51 g 97.5 [degF] 72 /min 130/64 mm[Hg] Janet Lang [facility] [place] [employer] [facility] [employer] [facility] 4 11:02:30 Date Recorded Body height Body mass index (BMI) Body weight Body temperature Heart rate Systolic And Diastolic Provider Name and Address Organization Details Last Updated DateTime 5 180.34 cm 31.7 kg/m2 963458. 47 g 97.4 [degF] 72 /min 120/68 mm[Hg] Janet Lang [facility] [employer] [facility] 5 14:19:53 Date Recorded Body height Body mass index (BMI) Body weight Body temperature Heart rate Respiratory rate Oxygen saturation Pain severity - 0-10 verbal numeric rating [Score] - Reported Systolic And Diastolic Provider Name and Address Organization Details Last Updated DateTime 4 180.34 cm 30.5 kg/m2 07311.7 3 g 97.7 [degF] 68 /min 18 /min 95 % 0 128/76 mm[Hg] Manuel Paula LPN [facility] [employer] [facility] 4 14:06:36 Date Recorded Body height Body mass index (BMI) Body weight Body temperature Pain severity - 0-10 verbal numeric rating [Score] - Reported Heart rate Oxygen saturation Systolic And Diastolic Provider Name and Address Organization Details Last Updated DateTime 5 180.34 cm 31.2 kg/m2 161097. 69 g 97.1 [degF] 1 70 /min 96 % 140/66 mm[Hg] Emma Haines MA [place] - [facility] [employer] 5 14:08:54 Social History Question Answer Notes LastModified by Organization Details LastModified Time Tobacco Smoking Status Former Smoker quit 16+ yrs ago Not Available [employer] 08/20/2022 07:26:42 Do You Have An Advance Directive? Yes [email or web address] Information not available 02/25/2024 Do You Wear A Helmet When Biking? No Does Not Bike [email or web address] Information not available 02/25/2024 Are You Blind Or Do You Have Difficulty Seeing? No MIGRATION.030 [id number] Information not available 08/20/2022 Is Blood Transfusion Acceptable In An Emergency? Yes Information not available 02/25/2024 What Is Your Level Of Caffeine Consumption? Occasional MIGRATION.030 [id number] Information not available 08/20/2022 In The 14 Days Before Symptom Onset, Have You Had Close Contact With A Laboratory-confi rmed COVID-19 While That Case Was Ill? No MIGRATION.030 271318 Information not available 08/20/2022 In The 14 Days Before Symptom Onset, Have You Had Close Contact With A Person Who Is Under Investigation For COVID-19 While That Person Was Ill? No MIGRATION.030 [id number] Information not available 08/20/2022 Are You Deaf Or Do You Have Serious Difficulty Hearing? No MIGRATION.030 333067 Information not available 08/20/2022 What Type Of Diet Are You Following? REGULAR MIGRATION.030 637677 Information not available 08/20/2022 What Is The Highest Grade Or Level Of School You Have Completed Or The Highest Degree You Have Received? [id number] MIGRATION.300 319808 Information not available 08/20/2022 How Many Days Of Moderate To Strenuous Exercise, Like A Brisk Walk, Did You Do In The Last 7 Days? 2 Information not available 02/25/2024 On Those Days That You Engage In Moderate To Strenuous Exercise, How Many Minutes, On Average, Do You Exercise? 30 Information not available 02/25/2024 Have There Been Any Changes To Your Family Or Social Situation? No MIGRATION.0301 [id number] Information not available 08/20/2022 What Is The Fluoride Status Of Your Home? Unknown MIGRATION.0301 371737 Information not available 08/20/2022 When Did You Quit Smoking? 16+yearssincelastci cosme MIGRATION.0301 [id number] Information not available 08/20/2022 Are There Any Guns Present In Your Home? No MIGRATION.0301 156564 Information not available 08/20/2022 Do You Use Insect Repellent Routinely? No MIGRATION.0301 582753 Information not available 08/20/2022 Where Do You Live? SingleLevelHouse MIGRATION.0301 586667 Information not available 08/20/2022 Advance Directive- Providers Has Reviewed Directive And Consents To Follow Them (insert Provider Name With Any Objectives In Notes Field) Yes Information not available 02/25/2024 Presence Of Domestic Violence No [email or web address] Information not available 02/25/2024 Guns Present In The Home? No Information not available 02/25/2024 Are You Able To Care For Yourself? Yes Information not available 02/25/2024 Are You Blind Or Do Yo Have Difficulty Seeing? No [email or web address] Information not available 02/25/2024 Are You Deaf Or Do You Have Serious Difficulty Hearing? No [email or web address] Information not available 02/25/2024 General Stress Level? Moderate [email or web address] Information not available 02/25/2024 Live Alone Of With Others? With Others [email or web address] Information not available 02/25/2024 Do You Have A Medical Power Of Simulation Developer? Yes [email or web address] Information not available 02/25/2024 What Was The Date Of Your Most Recent Tobacco Screening? 03/14/2025 [email or web address] Information not available 03/14/2025 How Many Children Do You Have? -1 [email or web address] Information not available 02/25/2024 What Is Your Current Pack Years? 10packyears [email or web address] Information not available 02/25/2024 Do You Have Any Pets? No MIGRATION.0301 124137 Information not available 08/20/2022 Do You Use Protection During Sex? No [email or web address] Information not available 02/25/2024 What Is Your Relationship Status? MIGRATION.0301 111461 Information not available 08/20/2022 Do You Use Your Seat Belt Or Car Seat Routinely? Yes MIGRATION.0301 451892 Information not available 08/20/2022 Are You Sexually Active? Yes [email or web address] Information not available 02/25/2024 Do You Have Smoke And Carbon Monoxide Detectors In Your Home? Yes MIGRATION.0301 864664 Information not available 08/20/2022 Are You Passively Exposed To Smoke? No MIGRATION.0301 377096 Information not available 08/20/2022 Are There Any Smokers In Your House? No MIGRATION.0301 148806 Information not available 08/20/2022 How Much Tobacco Do You Smoke? No [email or web address] Information not available 02/25/2024 What Types Of Sporting Activities Do You Participate In? None MIGRATION.0301 029802 Information not available 08/20/2022 Do You Use Sunscreen Routinely? No MIGRATION.0301 285081 Information not available 08/20/2022 Has Tobacco Cessation Counseling Been Provided? No MIGRATION.0301 636065 Information not available 08/20/2022 Have You Recently Traveled Abroad? No MIGRATION.0301 620981 Information not available 08/20/2022 Do You Have Difficulty Walking Or Climbing Stairs? No MIGRATION.0301 392583 Information not available 08/20/2022 Do You Have Any Dietary Restrictions? No MIGRATION.0301 191446 Information not available 08/20/2022 Sex: Male Functional Status Question Answer Note LastModified by Organizat ion Details LastModified Time Do you use any illicit or recreational drugs? No MIGRATION.494033 8523 Information not available 08/20/2022 Do you or have you ever used any other forms of tobacco or nicotine? No MIGRATION.374986 0443 Information not available 08/20/2022 What is your level of alcohol consumption? None MIGRATION.778887 1247 Information not available 08/20/2022 Are you currently employed? No Retired [email or web address] Information not available 02/25/2024 Do you have transportation difficulties? No MIGRATION.528464 5047 Information not available 08/20/2022 Are you able to walk independently without assistance or assistive devices? YESASSIST MIGRATION.993171 5529 Information not available 08/20/2022 Do you have difficulty doing errands alone? No MIGRATION.591053 9103 Information not available 08/20/2022 Are you able to care for yourself independently? Yes MIGRATION.691573 8301 Information not available 08/20/2022 Do you have difficulty dressing, bathing, grooming, or toileting? No MIGRATION.353250 0638 Information not available 08/20/2022 What is your exercise level? Occasional MIGRATION.950054 1669 Information not available 08/20/2022 Mental Status Question Answer Note LastModified by Organizat ion Details LastModified Time Do you feel stressed (tense, restless, nervous, or anxious, or unable to sleep at night)? [id number] MIGRATION.[id number] 26 Information not available 08/20/2022 Do you have difficulty concentrating, remembering or making decisions? No MIGRATION.75180746 26 Information not available 08/20/2022 Family History Relationship Description Onset Age of this Age Resolved Age Notes LastModified by Organization Details LastModified Time Father Heart disease MIGRATION.436 [id number] Not available 08/20/2022 07:26:55 Father Cardiac pacemaker in situ MIGRATION.413 [id number] Not available 08/20/2022 07:26:55 Father Hyperlipidem ia MIGRATION.114 [id number] Not available 08/20/2022 07:26:55 Mother Dementia MIGRATION.720 [id number] Not available 08/20/2022 07:26:55 Unspecified Relation Diabetes mellitus MIGRATION.139 [id number] Not available 08/20/2022 07:26:55 Unspecified Relation Diabetes mellitus MIGRATION.512 [id number] Not available 08/20/2022 07:26:55 Medical History Condition Response NERVE DISEASE N BLINDNESS N RHEUMATIC FEVER N KIDNEY STONES N BLADDER PROBLEMS N MRSA N OTHER # 1 N POLIO N LUNG DISEASE/DISORDER N HISTORY OF DRUG ABUSE N RADIATION / CHEMOTHERAPY N COPD N Other # 2 N BLOOD DISEASES N EAR OR HEARING PROBLEMS N MUMPS N SHINGLES N BOWEL PROBLEMS N DEPRESSION (INCLUDING POST ) N STROKE/TIA N ULCERS N BENIGN PROSTATIC HYPERPLASIA N MEASLES N HYPOTENSION N MYOCARDIAL INFARCTION N OBESITY N GERD/NAUSEA N ANEURYSM N URINARY/BLADDER/KIDNEY PROBLEMS N CORONARY ARTERY DISEASE (CAD) Y ADDICTION CONCERNS N ENDOMETRIOSIS N Impotence N USE OF BLOOD THINNERS Y SKIN PROBLEMS N GASTROINTESTINAL DISORDER N PERIPHERAL VASCULAR DISEASE N MUSCLE,JOINT OR BONE PROBLEMS N GASTROINTESTINAL BLEEDING N BLOOD CLOTS N ASTHMA N CATARACTS N ERECTILE DYSFUNCTION N VARICOSITIES N GI PROBLEMS N Low Testosterone N INFERTILITY N AIDS/HIV N CHEMOTHERAPY / RADIATION N LIVER DISEASE N MALE HYPOGONADISM N HYPERTENSION Y Deficiency N TOURETTE'S N ANXIETY DISORDER N BLOOD TRANSFUSION N ANEMIA/BLOOD DISORDER N CHRONIC EAR INFECTIONS N BRONCHITIS N TUBERCULOSIS N GLAUCOMA N FOOT PROBLEM N DIVERTICULITIS N CHICKENPOX N SLEEP APNEA N INFECTIOUS DISEASE N HEART ARRHYTHMIA N PROSTATE N INSOMNIA N HIGH CHOLESTEROL / HYPERLIPIDEMIA Y HYPERTHYROIDISM N EYE PROBLEMS N EDEMA N CHRONIC PAIN SYNDROME N HYPOTHYROIDISM N CAROTID BLOCKAGE N CONSTIPATION N BACK / NECK PROBLEMS N ATHEROSCLEROSIS N BREAST PROBLEMS N DIALYSIS N ECZEMA N OSTEOPOROSIS N ARTHRITIS Y APPENDICITIS N DIABETES, TYPE N BAD TEETH N ENT N HEARTBURN / REFLUX N AUTISM SPECTRUM DISORDER (ASD) N HEPATITIS / LIVER DISEASE N GOUT N SLEEP DISORDER N ALZHEIMER'S DISEASE N Brain Problems N HERPES N DEMENTIA N HEADACHES/MIGRAINES N SEIZURES/EPILEPSY N VASCULAR DISEASE N PACEMAKER N Blood Disorder N DIZZINESS N HEART DISEASE/HEART PROBLEMS Y KIDNEY DISEASE N MULTIPLE SCLEROSIS N CARDIAC ARRHYTHMIA N CANCER: SPECIFY Y ATRIAL FIBRILLATION N Gall Stones N PULMONARY EMBOLISM N AUTOIMMUNE DISEASE N Immunizations Vaccine Type Date Status Note Provider Nam e and Address Organization Details Recorded Time Influenza, high-dose, quadrivalent, PF 0 completed Janet Lang RMA jim, [facility] 11/15/2024 14:16:25 COVID-19, mRNA, LNP-S, bivalent, PF, 50 mcg/0.5 mL or 25mcg/0.25 mL dose 2 completed Janet Lang RMA null, [facility] 11/15/2024 14:16:25 influenza, unspecified formulation 8 completed Janet Lang RMA null, [facility] 11/15/2024 14:16:25 influenza, unspecified formulation 9 completed Janet Lang RMA null, [facility] 11/15/2024 14:16:25 pneumococcal, unspecified formulation 9 completed Janet Lang RMA null, [facility] 11/15/2024 14:16:25 COVID-19, mRNA, LNP-S, PF, 50 mcg/0.5 mL 4 completed Not Available [facility] 03/14/2025 13:53:53 COVID-19, mRNA, LNP-S, PF, 100 mcg/0.5mL dose or 50 mcg/0.25mL dose 1 completed Janet Lang RMA null, [employer] [facility] 11/15/2024 14:16:25 COVID-19 vaccine, vector-nr, rS-Ad26, PF, 0.5 mL 1 completed Janet Lang RMA null, [employer] [facility] 11/15/2024 14:16:25 Influenza, high-dose, quadrivalent, PF 2 completed Not Available [facility] 08/20/2022 07:34:43 Influenza, high-dose, quadrivalent, PF 3 completed Wilner Jamil MD [address] [facility], [place], [address], [employer] [facility] 06/09/2023 13:21:46 pneumococcal polysaccharide PPV23 4 completed Wilner Jamil MD [address] [facility] [address], [place], [address], [employer] [facility] 03/21/2024 18:51:03 Past Encounters Encounter ID Performer Location Encounter Start Date Encounter Closed Date Diagnosis/Indication Diagnosis SNOMED-CT Code Diagnosis ICD10 Code Diagnosis IMO Codes Diagnosis Note [id number] Wilner rosado MD [facility] [place] [address] [facility] [address] [place] [address] 12/10/2021 00:00:00 12/10/2021 15:17:07 [id number] Wilner rosado MD [facility] [place] [address] [place] [address] [place] [address] 04/08/2022 00:00:00 04/08/2022 18:15:45 [id number] Rohan Treadwell DPM [facility] [place] [address] [facility] [address] [place] [address] 05/12/2022 00:00:00 05/12/2022 11:34:48 [id number] Wilner rosado MD [facility] Internal Med [facility] [address] [facility] [address] [place] [address] 08/14/2022 00:00:00 08/14/2022 11:46:10 [id number] Wilner rosado MD [facility] Internal Med [facility] [address] [facility] [address] [place] [address] 12/18/2022 10:55:31 12/18/2022 11:26:23 Screening - NAD [id number] Z13.9 C-scope: States that he did do this about 3 years ago at [facility], get records UTD on yearly flu shotGet Tdap if not doneGet Shingrix and PCV #20 if not doneUTD on COVID 19 vaccines RTC in 4 monthsDo labsER if worseHe and his father did verbalize his understand ing of the above Coronary arteriosclerosis 87985059 I25.10 On ASAOn coreg 6.25mg bidOn plavixOn isosorbide ER 30mg dailyOn digoxin 0.125mg dailyOn lisinopril 5mg dailyOn lasix PRN, see case 03/04/[address] Ferrari [facility] 07/23/2022 : Next in 6 months Hyperlipidemia 73131786 E78.5 On atorvastat in 20mg dailyGet labs Gastroesop hageal reflux disease without esophagitis 606369788 K21.9 EGD 02/18/2017 : Dr Hwang On pantoprazo le 40mg dailyGet EGD done as he states that he has had a hx of Barretts Ex-smoker 7000503 Z87.89 1 Quit 16 + years agoNeeds to get US AAA done US AAA 07/09/2022 : Neg Urinary incontinence 165 047895 R32 On flomaxDoes well Generalize d anxiety disorder 83529826 F41.1 On lorazepam 1mg tid, but not taking this at all, states that he does not want this and only takes this when he has to do a CT or MRI for his lymphoma Advised on all the side effects of this medication renewed today Prediabetes 905648072 R7 3.03 Needs to do labs Declines any medsGet eye MDDr Mile 05/12/2022 Benign pro static hyperplasia without outflow obstruction 931390468 N40.0 On flomaxOn finasterid e filled 08/07/[address] Macias urology Chronic ki dney disease 364266337 N18.9 Get a referral to Dr Escobedo Adult heal th examination 550406697 Z00.00 Screening for disorder 211080701 Z13.9 [id number] Wilner rosado MD [facility] [place] [address] [facility] [place] [address] 06/09/2023 10:45:08 06/09/2023 11:37:15 Screening - NAD 900518957 Z13.9 C-scope: States that he did do this about 3 years ago at [facility], get records UTD on yearly flu shotGet Tdap if not doneGet Shingrix and PCV #20 if not doneUTD on COVID 19 vaccinesCa n do RSV vaccine RTC in 4 monthsDo labsER if worseHe and his father did verbalize his understand ing of the above Coronary arteriosclerosis 86503177 I25.10 On ASAOn coreg 6.25mg bidOn plavixOn isosorbide ER 30mg dailyOn digoxin 0.125mg dailyOn lisinopril 5mg dailyOn lasix PRN, see case 03/04/[address] Ferrari [facility] 07/23/2022 : Next in 6 monthsDr Vonda CLAY 01/21/2023 Hyperlipidemia 80995359 E78.5 On atorvastat in 20mg dailyGet labs Gastroesop hageal reflux disease without esophagitis 099906840 K21.9 EGD 02/18/2017 : Dr Hwang On pantoprazo le 40mg dailyGet EGD done as he states that he has had a hx of Barretts Ex-smoker 6354694 Z87.89 1 Quit 16 + years agoNeeds to get US AAA done US AAA 07/09/2022 : Neg Urinary incontinence 165 651691 R32 On finasterid e [address] Elfego Pedro [facility] now see Dr Etienne referred 06/09/2023 Generalize d anxiety disorder 39527970 F41.1 On lorazepam 1mg tid, but not taking this at all, states that he does not want this and only takes this when he has to do a CT or MRI for his lymphoma Advised on all the side effects of this medication renewed today Prediabetes 822379801 R7 3.03 Needs to do labs Declines any medsGet eye MDDr Mile 05/12/2022 Benign pro static hyperplasia without outflow obstruction 556961378 N40.0 On flomaxOn finasterid e filled 08/07/[address] Macias urology Chronic ki dney disease 598988264 N18.[address] referral to Dr Escobedo IJ Tuberculos is screening 213575339 Z11.1 +ve quanitfero nDr Pelayo 03/05/2023 , get yearly xrays chest Low back pain 340707081 M54.50 Dr Bai 01/22/2023 : Continue with tramadol Chronic ly mphoid leukemia, disease 20038330 C91.10 Dr Burrows 03/26/2023 , on imbruvica Malignant neoplasm of prostate 632493616 C61 Dr Macias urologist 11/14/2022 , now will see Dr Etienne Administra tion of influenza vaccine 33129873 Z23 [id number] Wilner rosado MD [facility] [address] [facility], [facility] [address] [place] [address] 08/13/2023 11:17:09 08/13/2023 12:18:02 Screening - NAD 644420209 Z13.9 C-scope: States that he did do this about 3 years ago at [facility], get records UTD on yearly flu shotGet Tdap if not doneGet Shingrix and PCV #20 if not doneUTD on COVID 19 vaccinesCa n do RSV vaccine RTC in 4 monthsDo labsER if worseHe and his father did verbalize his understand ing of the above Coronary arteriosclerosis 04245087 I25.10 On ASAOn coreg 6.25mg bidOn plavixOn isosorbide ER 30mg dailyOn digoxin 0.125mg dailyOn lisinopril 5mg dailyOn lasix PRN, see case 03/04/[address] Ferrari [facility] 07/23/2022 : Next in 6 monthsDr Ferrari SL 01/21/[address] Ferrari on 08/26 and 09/16/2023 , now has a heart monitor s/p d/c from [facility] for dizziness on 08/05/2023 Hyperlipidemia 64814784 E78.5 On atorvastat in 20mg dailyGet labs Gastroesop hageal reflux disease without esophagitis 383604236 K21.9 EGD 02/18/2017 : Dr Hwang On pantoprazo le 40mg dailyGet EGD done as he states that he has had a hx of Barretts Ex-smoker 4772156 Z87.89 1 Quit 16 + years agoNeeds to get US AAA done US AAA 07/09/2022 : Neg Urinary incontinence 165 642897 R32 On finasterid e Dr Telles flomax Dr Pedro [facility] now see Dr Etienne referred 06/09/2023 Generalize d anxiety disorder 18290194 F41.1 On lorazepam 1mg tid, but not taking this at all, states that he does not want this and only takes this when he has to do a CT or MRI for his lymphoma Advised on all the side effects of this medication renewed today Prediabetes 191768429 R7 3.03 Needs to do labs Declines any medsGet eye MDDr Mile 05/12/2022 Benign pro static hyperplasia without outflow obstruction 352442055 N40.0 On flomaxOn finasterid e filled 08/07/[address] Macias urology Chronic ki dney disease 938895038 N18.9 Get a referral to Dr Gregg ADAMES Tuberculos is screening 884314312 Z11.1 +ve quanitfero nDr Pelayo 03/05/2023 , get yearly xrays chest Low back pain 811133871 M54.50 Dr Bai 01/22/2023 : Continue with tramadol Chronic ly mphoid leukemia, disease 06542898 C91.10 Dr Burrows 03/26/2023 , on imbruvica, renewed 07/28/2023 , Dr Burrows Malignant neoplasm of prostate 802152172 C61 Dr Macias urologist 11/14/2022 , now will see Dr Etienne Unsteady when walking 22 009019 R26.89 D/c from [facility] 08/05/2023 CT head: Rolanda doneTreate d with ASA, zofran and antivertSe en by Dr Harvey neurology, now will see Dr Leon neurologis t on 09/09/2023 [id number] Wilner rosado MD [facility] [address] [facility] [facility] [address] [place] [address] 10/06/2023 10:53:53 10/06/2023 11:33:59 Screening - NAD [id number] Z13.9 C-scope: States that he did do this about 3 years ago at [facility], get records UTD on yearly flu shotGet Tdap if not doneGet Shingrix and PCV #20 if not doneUTD on COVID 19 vaccinesCa n do RSV vaccine RTC in 4 monthsDo labsER if worseHe and his father did verbalize his understand ing of the above Coronary arteriosclerosis [id number] I25.10 ECHO 08/10/2023 On ASAOn coreg 6.25mg bidOn plavixOn isosorbide ER 30mg dailyOn digoxin 0.125mg dailyOn lisinopril 5mg dailyOn lasix PRN, see case 03/04/[address] Ferrari [facility] 07/23/2022 : Next in 6 monthsDr Ferrari [facility] 01/21/2023 Dr Ferrari on 08/26 and 09/16/2023 , now has a heart monitor s/p d/c from [facility] for dizziness on 08/05/2023 Dr Ferrari 08/10/2023 , states today 10/06/2023 that he is now going to see a cardiologi st in [facility] referred by Dr Burrows as Dr Ferrari charged him $25 and he did not want to pay that Hyperlipidemia 91822401 E78.5 On atorvastat in 20mg dailyGet labs Gastroesop hageal reflux disease without esophagitis 928993647 K21.9 EGD 02/18/2017 : Dr Hwang On pantoprazo le 40mg dailyGet EGD done as he states that he has had a hx of Barretts Ex-smoker 5514638 Z87.89 1 Quit 16 + years agoNeeds to get US AAA done US AAA 07/09/2022 : Neg Urinary incontinence 165 559573 R32 On finasterid e Dr Elfego Milan now see Dr Etienne referred 06/09/2023 Generalize d anxiety disorder 70942739 F41.1 On lorazepam 1mg tid, but not taking this at all, states that he does not want this and only takes this when he has to do a CT or MRI for his lymphoma Advised on all the side effects of this medication renewed today Prediabetes 431226856 R7 3.03 Needs to do labs Declines any medsGet eye MDDr Mile 05/12/2022 Benign pro static hyperplasia without outflow obstruction 327918084 N40.0 On flomaxOn finasterid e filled 08/07/[address] Macias urology Chronic ki dney disease 741012996 N18.9 Get a referral to Dr Gregg ADAMES, declined this today 10/06/2023 as he states that Dr Burrows his onclogist monitors this for him Tuberculos is screening 320584694 Z11.1 +ve quanitfero nDr Pelayo 03/05/2023 , get yearly xrays chest Low back pain 000354115 M54.50 Dr Bai 01/22/2023 : Continue with tramadol Chronic ly mphoid leukemia, disease 73015193 C91.10 Dr Burrows 03/26/2023 , on imbruvica, renewed 07/28/2023 , Dr Burrows Malignant neoplasm of prostate 098711698 C61 Dr Macias urologist 11/14/2022 , now will see Dr Etienne Unsteady when walking 22 329523 R26.89 MRI brain 08/05/2023 CT angio, carotid 08/04/2023 D/c from [facility] 08/05/2023 CT head: negCTA doneTreate d with ASA, zofran and antivertSe en by Dr Harvey neurology, now will see Dr Leon neurologis t on 09/09/2023 [id number] Wilner rosado MD [facility] [address] [facility], [address] [place] [address] 02/25/2024 13:52:29 02/25/2024 14:43:20 Screening - NAD [id number] Z13.9 C-scope: States that he did do this about 3 years ago at [facility], get recordsNow agreeable to do cologuard ordered 02/25/2024 UTD on yearly flu shotGet Tdap if not doneGet Shingrix and PCV #20 if not doneUTD on COVID 19 vaccinesCa n do RSV vaccine RTC in 4 monthsDo labsER if worseHe and his father did verbalize his understand ing of the above Coronary arteriosclerosis 69328565 I25.10 ECHO 08/10/2023 On ASAOn coreg 6.25mg bidOn plavixOn isosorbide ER 30mg dailyOn digoxin 0.125mg dailyOn lisinopril 5mg dailyOn lasix PRN, see case 03/04/[address] Vonda HOGUE 07/23/2022 : Next in 6 monthsDr Vonda CLAY 01/21/2023 Dr Ferrari on 08/26 and 09/16/2023 , now has a heart monitor s/p d/c from [facility] for dizziness on 08/05/2023 Dr Ferrari 08/10/2023 , states today 10/06/2023 that he is now going to see a cardiologi st in [facility] referred by Dr Burrows as Dr Ferrari charged him $25 and he did not want to pay that Hyperlipidemia 17357675 E78.5 On atorvastat in 20mg dailyGet labs Gastroesop hageal reflux disease without esophagitis 776727729 K21.9 EGD 02/18/2017 : Dr Hwang On pantoprazo le 40mg dailyGet EGD done as he states that he has had a hx of Barretts Ex-smoker 6297432 Z87.89 1 Quit 16 + years agoNeeds to get US AAA done US AAA 07/09/2022 : Neg Urinary incontinence 165 621938 R32 On finasterid e Dr Telles flomax Dr Mayela Milan now see Dr Etienne 11/17/2023 , next in one year Generalize d anxiety disorder 45363640 F41.1 On lorazepam 1mg tid, but not taking this at all, states that he does not want this and only takes this when he has to do a CT or MRI for his lymphoma Advised on all the side effects of this medication renewed today Prediabetes 766937197 R7 3.03 Needs to do labs Declines any meds 02/25/2024 Get eye MDDr Mile 05/12/2022 Benign pro static hyperplasia without outflow obstruction 001206931 N40.0 On flomaxOn finasterid e filled 08/07/[address] Macias urology Chronic ki dney disease 091984447 N18.9 Get a referral to Dr Gregg ADAMES, declined this today 10/06/2023 as he states that Dr Burrows his onclogist monitors this for him Tuberculos is screening 463844645 Z11.1 +ve quanitfero nDr Pelayo 03/05/2023 , get yearly xrays chest Low back pain 138901850 M54.50 Dr Bai 01/22/2023 : Continue with tramadol Chronic ly mphoid leukemia, disease 77472817 C91.10 Dr Burrows 09/25/2023 on imbruvica, f/u in 6 monthss Malignant neoplasm of prostate 084103413 C61 Dr Macias urologist 11/14/2022 , now will see Dr Etienne Unsteady when walking 22 692136 R26.89 MRI brain 08/05/2023 CT angio, carotid 08/04/2023 D/c from [facility] 08/05/2023 CT head: negCTA doneTreate d with ASA, zofran and antivertSe en by Dr Harvey neurology, now will see Dr Carolyn soto t on 09/09/2023 Adult heal th examination 128065755 Z00.00 Screening for disorder 284140291 Z13.9 Screening for malignant neoplasm of colon 345912496 Z12.11 Administra tion of pneumococcal vaccine 86116117 Z23 [id number] Wilner rosado MD [facility] [address] [place] [address] 08/16/2024 15:04:01 08/16/2024 16:05:41 Screening - NAD 835065945 Z13.9 C-scope: States that he did do this about 3 years ago at [facility], get recordsNow agreeable to do cologuard ordered 02/25/2024 UTD on yearly flu shotGet Tdap if not doneGet Shingrix and PCV #20 if not doneUTD on COVID 19 vaccinesCa n do RSV vaccine RTC in 4 monthsDo labsER if worseHe and his father did verbalize his understand ing of the above Coronary arteriosclerosis 71645652 I25.10 ECHO 08/10/2023 On ASAOn coreg 6.25mg bidOn plavixOn isosorbide ER 30mg dailyOn digoxin 0.125mg dailyOn lisinopril 5mg dailyOn lasix PRN, see case 03/04/[address] Vonda HOGUE 07/23/2022 : Next in 6 monthsDr Vonda CLAY 01/21/2023 Dr Ferrari on 08/26 and 09/16/2023 , now has a heart monitor s/p d/c from [facility] for dizziness on 08/05/2023 Dr Ferrari 08/10/2023 , states today 10/06/2023 that he is now going to see a cardiologi st in [facility] referred by Dr Burrows as Dr Ferrari charged him $25 and he did not want to pay that OV 08/16/2024 :Is now seeing Dr Hale to get stress test next Thursday Hyperlipidemia 38218104 E78.5 On atorvastat in 20mg dailyGet labs Gastroesop hageal reflux disease without esophagitis 477685715 K21.9 EGD 02/18/2017 : Dr Hwang On pantoprazo le 40mg dailyGet EGD done as he states that he has had a hx of Barretts Ex-smoker 1977080 Z87.89 1 Quit 16 + years agoNeeds to get US AAA done US AAA 07/09/2022 : Neg Urinary incontinence 165 912876 R32 On finasterid e Dr Telles flomax Dr Mayela Milan now see Dr Etienne 11/17/2023 , next in one year Generalize d anxiety disorder 74044189 F41.1 On lorazepam 1mg tid, but not taking this at all, states that he does not want this and only takes this when he has to do a CT or MRI for his lymphoma Advised on all the side effects of this medication renewed today Prediabetes 944431569 R7 3.03 Needs to do labs Declines any meds 02/25/2024 Get eye MDDr Mile 05/12/2022 Benign pro static hyperplasia without outflow obstruction 851895419 N40.0 On flomaxOn finasterid e filled 08/07/[address] Macias urology Chronic ki dney disease 331887791 N18.9 Get a referral to Dr Gregg ADAMES, declined this today 10/06/2023 as he states that Dr Burrows his onclogist monitors this for him Tuberculos is screening 647012978 Z11.1 +ve quanitfero nDr Pelayo 03/05/2023 , get yearly xrays chest Low back pain 513077736 M54.50 Dr Bai 01/22/2023 : Continue with tramadol Chronic ly mphoid leukemia, disease 43158181 C91.10 Dr Burrows 09/25/2023 on imbruvica, f/u in 6 monthss Malignant neoplasm of prostate 386980592 C61 Dr Macias urologist 11/14/2022 , now will see Dr Etienne Unstearima when walking 22 617527 R26.89 MRI brain 08/05/2023 CT angio, carotid 08/04/2023 D/c from [facility] 08/05/2023 CT head: negCTA doneTreate d with ASA, zofran and antivertSe en by Dr Harvey neurology, now will see Dr Leon neurologis t on 09/09/2023 Screening for malignant neoplasm of colon 862162000 Z12.11 [id number] Wilner rosado MD [facility] [address] [facility], [facility] [address] [place] [address] 11/15/2024 14:04:57 11/15/2024 14:50:40 Screening - NAD 763899602 Z13.9 C-scope: States that he did do this about 3 years ago at [facility], get recordsNow agreeable to do cologuard ordered 02/25/2024 Cologuard 05/10/2024 ; neg UTD on yearly flu shotGet Tdap if not doneGet Shingrix and PCV #20 if not doneUTD on COVID 19 vaccinesCa n do RSV vaccine RTC in 4 monthsDo labsER if worseHe and his father did verbalize his understand ing of the above Coronary arteriosclerosis 34881075 I25.10 ECHO 08/10/2023 ECHO 09/29/2024 On ASAOn coreg 6.25mg bidOn plavixOn isosorbide ER 30mg and 60mg daily, given by Dr Chapman 11/03/2024 , as per his history he is only taking 15mg dailyAlso not taking the ranolizine On digoxin 0.125mg dailyOn lisinopril 5mg dailyOn lasix PRN, see case 03/04/[address] Ferrari [facility] 07/23/2022 : Next in 6 monthsDr Vonda CLAY 01/21/2023 Dr Ferrari on 08/26 and 09/16/2023 , now has a heart monitor s/p d/c from [facility] for dizziness on 08/05/2023 Dr Ferrari 08/10/2023 , states today 10/06/2023 that he is now going to see a cardiologi st in [facility] referred by Dr Burrows as Dr Ferrari charged him $25 and he did not want to pay that OV 08/16/2024 :Is now seeing Dr Hale to get stress test next Thursday OV 11/15/2024 : 5: US carotid and ECHONext apt is 'soon' as per his history Hyperlipidemia 69365080 E78.5 On atorvastat in 20mg dailyGet labs Gastroesop hageal reflux disease without esophagitis 055329174 K21.9 EGD 02/18/2017 : Dr Hwang On pantoprazo le 40mg dailyGet EGD done as he states that he has had a hx of Barretts Ex-smoker 8717729 Z87.89 1 Quit 16 + years agoNeeds to get US AAA done US AAA 07/09/2022 : Neg Urinary incontinence 165 112281 R32 On finasterid e Dr Elfego Milan now see Dr Etienne 11/17/2023 , next in one year Generalize d anxiety disorder 95830105 F41.1 On lorazepam 1mg tid, but not taking this at all, states that he does not want this and only takes this when he has to do a CT or MRI for his lymphoma Advised on all the side effects of this medication renewed today Prediabetes 761275289 R7 3.03 Needs to do labs Declines any meds 02/25/2024 Get eye MDDr Mile 05/12/2022 Benign pro static hyperplasia without outflow obstruction 532624601 N40.0 On flomaxOn finasterid e filled 08/07/[address] Macias urology Chronic ki dney disease 793850442 N18.9 Get a referral to Dr Gregg ADAMES, declined this today 10/06/2023 as he states that Dr Burrows his onclogist monitors this for him Tuberculos is screening 077739787 Z11.1 +ve quanitfero nDr Pelayo 03/05/2023 , get yearly xrays chest Low back pain 450051791 M54.50 Dr Bai 01/22/2023 : Continue with tramadol Chronic ly mphoid leukemia, disease 98196303 C91.10 Dr Burrows on imbruvicaJ ordan José Miguel Malignant neoplasm of prostate 938830456 C61 Dr Macias urologist 11/14/2022 , now will see Dr Lamonte Etienne 11/17/2023 , f/u in one year with PSA, next apt is on 11/17/2024 in [place] Unsteady when walking 22 116208 R26.89 MRI brain 08/05/2023 CT angio, carotid 08/04/2023 D/c from [facility] 08/05/2023 CT head: negCTA doneTreate d with ASA, zofran and antivertSe en by Dr Harvey neurology, now will see Dr Carolyn soto t on 09/09/2023 [id number] Wilner rosado MD [facility] [address] [place] [address] 03/14/2025 13:52:33 03/14/2025 14:58:51 Screening - NAD 624517570 Z13.9 C-scope: States that he did do this about 3 years ago at [facility], get recordsNow agreeable to do cologuard ordered 02/25/2024 Cologuard 05/10/2024 ; neg UTD on yearly flu shotGet Tdap if not doneGet Shingrix and PCV #20 if not doneUTD on COVID 19 vaccinesCa n do RSV vaccine RTC in 4 monthsDo labsER if worseHe and his father did verbalize his understand ing of the above Coronary arteriosclerosis 94344460 I25.10 ECHO 08/10/2023 ECHO 09/29/2024 On ASAOn coreg 6.25mg bidOn plavixOn isosorbide ER 30mg and 60mg daily, given by Dr Chapman 11/03/2024 , as per his history he is only taking 15mg dailyAlso not taking the ranolizine , states that he told Dr Chapman that he would not take thisOn digoxin 0.125mg dailyOn lisinopril 5mg dailyOn lasix PRN, see case 03/04/[address] Ferrari [facility] 07/23/2022 : Next in 6 monthsDr Vonda HOGUE 01/21/2023 Dr Ferrari on 08/26 and 09/16/2023 , now has a heart monitor s/p d/c from [facility] for dizziness on 08/05/2023 Dr Ferrari 08/10/2023 , states today 10/06/2023 that he is now going to see a cardiologi st in [facility] referred by Dr Burrows as Dr Ferrari charged him $25 and he did not want to pay that OV 08/16/2024 :Is now seeing Dr Hale to get stress test next Thursday OV 11/15/2024 : 5: US carotid and ECHONext apt is 'soon' as per his history O V0 5:Now sees Dr Chapman Hyperlipidemia 07289356 E78.5 On atorvastat in 20mg dailyGet labs Gastroesop hageal reflux disease without esophagitis 561508650 K21.9 EGD 02/18/2017 : Dr Hwang On pantoprazo le 40mg dailyGet EGD done as he states that he has had a hx of Barretts Ex-smoker 9657067 Z87.89 1 Quit 16 + years agoNeeds to get US AAA done US AAA 07/09/2022 : Neg Urinary incontinence 165 663155 R32 On finasterid e Dr Telles flomax Dr Mayela Milan now see Dr Etienne 11/17/2023 , next in one year Generalize d anxiety disorder 26390057 F41.1 On lorazepam 1mg tid, but not taking this at all, states that he does not want this and only takes this when he has to do a CT or MRI for his lymphoma Advised on all the side effects of this medication renewed today Prediabetes 794524886 R7 3.03 Needs to do labs Declines any meds 02/25/2024 Get eye MDDr Mile 05/12/2022 Benign pro static hyperplasia without outflow obstruction 770902058 N40.0 On flomaxOn finasterid e filled 08/07/[address] Macias urology Chronic ki dney disease 882015583 N18.9 Get a referral to Dr Gregg ADAMES, declined this today 10/06/2023 as he states that Dr Burrows his onclogist monitors this for him OV 03/14/2025 :Agreeable to see Dr Gregg ADAMES Tuberculos is screening 584710715 Z11.1 +ve quanitfero nDr Pelayo 03/05/2023 , get yearly xrays chest Low back pain 563836906 M54.50 Dr Bai 01/22/2023 : Continue with tramadol Chronic ly mphoid leukemia, disease 92278041 C91.10 Dr Burrows on imbruvicaJ ordan José Miguel Malignant neoplasm of prostate 879755973 C61 Dr Macias urologist 11/14/2022 , now will see Dr Lamonte Etienne 11/17/2023 , f/u in one year with PSA, next apt is on 11/17/2024 in [place] Unsteady when walking 22 477669 R26.89 MRI brain 08/05/2023 CT angio, carotid 08/04/2023 D/c from [facility] 08/05/2023 CT head: negCTA doneTreate d with ASA, zofran and antivertSe en by Dr Harvey neurology, now will see Dr Leon neurologis t on 09/09/2023 Health Concerns Section Related Observation LastModified by Organization Detdyllan ls LastModified Time None Recorded Concern Status LastModified by Organization Details LastModified Time None Recorded Advance Directives Directive Y: Payers Insurance Date Sequence Insurance Name Policy Number Policy Hamlin Covered Member ID Hamlin Member ID Guarantor Name 03/14/[address] [facility] (MEDICARE REPLACEMENT/A DVANTAGE - HMO) [id number] Solo Martin [id number] Solo Martin Notes Date Note Type Note Provider Name and Address Organization Details Recorded Time 4 text/html OV 12/10/2021:Here to establish carePast Hx:dominic ARTEAGA of BarrettsUIAnxietyEx SmokerReviewed social family and surgical historyHere with his fatherNeeds to discuss above and get labs, feels well todayOV 04/08/2022:Here for his f/u apt, he feels well, he did do the labsOV 08/14/2022:Here for his f/u apt, he is doing well today, labs done OV 12/18/2022: Here for his f/u apt, he is doing well today, he has done labs OV 06/09/2023: Here for his f/u apt, he feels well OV 08/13/2023: Here post hospital, d/c from [facility] 08/04/2023 for dizziness and unsteady gait, now is doing much better, is to see Dr Ferrari and Dr Leon the neurologist OV 10/06/2023: Here for his f/u apt, he is doing well now, he did do the labs Wilner Jamil MD [address] [place] [address], [place] [address], [place], [address], [facility] 10/06/2023 11:34:10 4 text/html OV 12/10/2021:Here to establish carePast Hx:dominic ARTEAGA of BarrettsUIAnxietyEx SmokerReviewed social family and surgical historyHere with his fatherNeeds to discuss above and get labs, feels well todayOV 04/08/2022:Here for his f/u apt, he feels well, he did do the labsOV 08/14/2022:Here for his f/u apt, he is doing well today, labs done OV 12/18/2022: Here for his f/u apt, he is doing well today, he has done labs OV 06/09/2023: Here for his f/u apt, he feels well OV 08/13/2023: Here post hospital, d/c from [facility] 08/04/2023 for dizziness and unsteady gait, now is doing much better, is to see Dr Ferrari and Dr Leon the neurologist OV 10/06/2023: Here for his f/u apt, he is doing well now, he did do the labs OV 02/25/2024: Here for his f/u apt, doing well today, labs done 02/08/2024 Wilner Jamil MD [address], [address], [place], [address], [employer] 03/21/2024 18:51:25 text/html OV 12/10/2021:Here to establish carePast Hx:dominic ARTEAGA of BarrettsUIAnxietyEx SmokerReviewed social family and surgical historyHere with his fatherNeeds to discuss above and get labs, feels well todayOV 04/08/2022:Here for his f/u apt, he feels well, he did do the labsOV 08/14/2022:Here for his f/u apt, he is doing well today, labs done OV 12/18/2022: Here for his f/u apt, he is doing well today, he has done labs OV 06/09/2023: Here for his f/u apt, he feels well OV 08/13/2023: Here post hospital, d/c from [facility] 08/04/2023 for dizziness and unsteady gait, now is doing much better, is to see Dr Ferrari and Dr Leon the neurologist OV 10/06/2023: Here for his f/u apt, he is doing well now, he did do the labs OV 02/25/2024: Here for his f/u apt, doing well today, labs done 02/08/2024 OV 08/16/2024: Here for his routine apt he is to get the stress test at [facility] on this Thursday, is doing well today Wilner Jamil MD [address], [address], [place], [address], [employer] 08/16/2024 18:27:11 5 text/html OV 12/10/2021:Here to establish carePast Hx:dominic ARTEAGA of BarrettsUIAnxietyEx SmokerReviewed social family and surgical historyHere with his fatherNeeds to discuss above and get labs, feels well todayOV 04/08/2022:Here for his f/u apt, he feels well, he did do the labsOV 08/14/2022:Here for his f/u apt, he is doing well today, labs done OV 12/18/2022: Here for his f/u apt, he is doing well today, he has done labs OV 06/09/2023: Here for his f/u apt, he feels well OV 08/13/2023: Here post hospital, d/c from [facility] 08/04/2023 for dizziness and unsteady gait, now is doing much better, is to see Dr Ferrari and Dr Leon the neurologist OV 10/06/2023: Here for his f/u apt, he is doing well now, he did do the labs OV 02/25/2024: Here for his f/u apt, doing well today, labs done 02/08/2024 OV 08/16/2024: Here for his routine apt he is to get the stress test at [facility] on this Thursday, is doing well today OV 11/15/2024: Here for his routine apt, he is doing well today, he did do the labs Wilner Jamil MD [address] [place] [address], [facility] [address], [place], [address], [place] [facility] [employer] 11/15/2024 18:06:27 5 text/html OV 12/10/2021:Here to establish carePast Hx:dominic ARTEAGA of BarrettsUIAnxietyEx SmokerReviewed social family and surgical historyHere with his fatherNeeds to discuss above and get labs, feels well todayOV 04/08/2022:Here for his f/u apt, he feels well, he did do the labsOV 08/14/2022:Here for his f/u apt, he is doing well today, labs done OV 12/18/2022: Here for his f/u apt, he is doing well today, he has done labs OV 06/09/2023: Here for his f/u apt, he feels well OV 08/13/2023: Here post hospital, d/c from [facility] 08/04/2023 for dizziness and unsteady gait, now is doing much better, is to see Dr Ferrari and Dr Leon the neurologist OV 10/06/2023: Here for his f/u apt, he is doing well now, he did do the labs OV 02/25/2024: Here for his f/u apt, doing well today, labs done 02/08/2024 OV 08/16/2024: Here for his routine apt he is to get the stress test at [facility] on this Thursday, is doing well today OV 11/15/2024: Here for his routine apt, he is doing well today, he did do the labs OV 03/14/2025: Here for his f/u apt, he is here with his father, he did do the labs, does feels well Wilner Jamil MD [address], [address], [place], [address], [place] [facility] 03/14/2025 18:20:07
--- OUTSIDE RECORDS SUMMARY | 2025-06-21 19:51 | XMS_ITS | Patient Health Record ---
Author Organization [facility] Address [address] [place] [address] Care Team Providers Care Mannequin Wig Maker Name Role Phone GreggNasrinFarzad Unavailable [phone] Reason For Referral No Information Medications Medication SIG (Take, Route, Frequency, Duration) Notes Start Date End Date Status Ergocalciferol 1.25 MG (32641 UT) 1 capsule Orally Once a week; Duration: 30 days 06/09/2025 09/07/2025 Active Calcitriol 0.25 MCG 1 capsule Orally Onc e a day; Duration: 90 days 06/09/2025 Active Problems Problem Type SNOMED Code ICD Code Onset Dates Problem Status W/U Status Risk Notes Problem Metabolic disorder (62611917) Metabolic disorder, unspecified (E88.9) Active confirmed Problem Gastro-esophagea l reflux disease without esophagitis (282081224) Gastro-esophage al reflux disease without esophagitis (K21.9) Active confirmed Problem Fatigue (00301044) Other fatigue (R53.83) Active confirmed Problem Edema (27387538) Edema, unspecified (R60.9) Active confirmed Problem Benign prostatic hypertrophy without outflow obstruction (141633197) Benign prostatic hyperplasia without lower urinary tract symptoms (N40.0) Active confirmed Problem Chronic kidney disease stage 3A (disorder) (871651332) Chronic kidney disease, stage 3a (N18.31) Active confirmed Problem Coronary artery disease (62185506) CAD (coronary artery disease) (I25.10) Active confirmed Encounters Encounter Location Date Provider Diagnosis [address] [place] [address] 05/03/2025 Farzad Escobedo Chronic kidney disease, stage 3 unspecified N18.30 ; Benign prostatic hyperplasia without lower urinary tract symptoms N40.0 ; Other fatigue R53.83 ; Gastro-esophageal reflux disease without esophagitis K21.9 ; Edema, unspecified R60.9 and Metabolic disorder, unspecified E88.9 [facility] [address] [address] 06/09/2025 Farzad Escobedo Chronic kidney disease, stage 3a N18.31 ; Benign prostatic hyperplasia without lower urinary tract symptoms N40.0 ; Other fatigue R53.83 ; Gastro-esophageal reflux disease without esophagitis K21.9 ; Edema, unspecified R60.9 ; Metabolic disorder, unspecified E88.9 and CAD (coronary artery disease) I25.10 [place] [facility] [address] [facility] [address] [place] [address] 06/09/2025 Farzad Escobedo Assessments Encounter Date Diagnosis (ICD Code) Assessment Notes Treatment Notes Treatment Clinical Notes Section Notes 05/03/2025 Chronic kidney disease, stage 3 unspecified (ICD-10 - N18.30) 06/09/2025 Chronic kidney disease, stage 3a (ICD-10 - N18.31) 06/09/2025 Benign prostatic hyperplasia without lower urinary tract symptoms (ICD-10 - N40.0) 05/03/2025 Benign prostatic hyperplasia without lower urinary tract symptoms (ICD-10 - N40.0) 05/03/2025 Other fatigue (ICD-10 - R53.83) 06/09/2025 Other fatigue (ICD-10 - R53.83) 05/03/2025 Gastro-esophagea l reflux disease without esophagitis (ICD-10 - K21.9) 06/09/2025 Gastro-esophagea l reflux disease without esophagitis (ICD-10 - K21.9) 05/03/2025 Edema, unspecified (ICD-10 - R60.9) 06/09/2025 Edema, unspecified (ICD-10 - R60.9) 05/03/2025 Metabolic disorder, unspecified (ICD-10 - E88.9) 06/09/2025 Metabolic disorder, unspecified (ICD-10 - E88.9) 06/09/2025 CAD (coronary artery disease) (ICD-10 - I25.10) Plan Of Treatment Next Appt Details Provider Name:Farzad Escobedo , 09/01/2025 01:15:00 PM, [address], [place], [address],
[2025-06-21 19:52] LABS: Partial Thromboplastin Time 30.5 Seconds (22.3-36.8)
[2025-06-21] MEDS: LACTATED RINGERS 1,000 ML 999 ML IV CONT (21:04)
[2025-06-21 23:17] VITALS: BP 116/51; PULSE 72; RESP 20; O2SAT 96
[2025-06-21 23:33] LABS: Troponin I < 0.012 ng/mL (0.000-0.034)
[2025-06-21 23:52] VITALS: BP 116/51; PULSE 72; RESP 20; O2SAT 96
== END 2025-06-21 23:53 | disposition home or self-care (01) ==
PROVIDERS: Student in an Organized Health Care Education/Training Program; Emergency Provider Student in an Organized Health Care Education/Training Program; PCP Internal Medicine
DX: J18.9 Pneumonia, unspecified organism (principal); R07.9 Chest pain, unspecified; N17.9 Acute kidney failure, unspecified; I25.10 Atherosclerotic heart disease of native coronary artery without angina pectoris; I50.9 Heart failure, unspecified; E78.5 Hyperlipidemia, unspecified; I11.0 Hypertensive heart disease with heart failure; Z85.46 Personal history of malignant neoplasm of prostate; Z85.72 Personal history of non-Hodgkin lymphomas; E11.9 Type 2 diabetes mellitus without complications; Z87.891 Personal history of nicotine dependence
CPT/HCPCS: 36415; 71046; 71275; 80053; 83690; 84484; 85025; 85610; 85730; 93005; 96360; 99284; A9270; J7120; Q9967